=== PATIENT | female | born 1955 | race Caucasian/White ===

== ENCOUNTER 2018-04-22 16:23 | Emergency (ER) | payer BC, OTHER ==
--- OUTSIDE RECORDS SUMMARY | 2018-04-22 16:35 | XMS REPORT | Continuity of Care Document ---
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 Kita Kinght PayID: [id number] [address] [place] [address] Advance Directives Description No Information Available Problems Date Description Provider Status Onset: 10/20/2012 Genital herpes simplex Abigail Iniguez MD Active Onset: 05/02/2011 Vitamin D deficiency Abigail Iniguez MD Active Onset: 04/30/2010 Family history of osteoporosis Abigail Iniguez MD Active Onset: 03/27/2009 Solitary sacroiliitis Abigail Iniguez MD Active Onset: 03/27/2009 Menopausal and postmenopausal Abigail Iniguez MD Active disorders Onset: 04/11/2008 Allergic rhinitis due to pollen Abigail Iniguez MD Active Onset: 02/01/2007 Intramural leiomyoma of uterus Abigail Iniguez MD Active Onset: 02/01/2007 Migraine variants, not intractable Abigail Iniguez MD Active Onset: 12/31/2005 Migraine with typical aura Abigail Iniguez MD Active Onset: 08/10/2013 Abnormal cervical Papanicolaou smear Abigail Iniguez MD Resolved with positive human papillomavirus deoxyribonucleic acid test Resolved: 03/19/2018 Onset: 12/31/2005 Mixed hyperlipidemia Abigail Iniguez MD Resolved Resolved: 07/20/2014 Family History Date Family Member(s) Problem(s) Comments Father Hypercholesterolemia Father Hypertension Father CAD Father Osteoarthritis Father Osteoporosis Father Glaucoma Mother Hypertension Mother Gout First Daughter No Current Problems First Brother due to Leukemia () - (age 5 Years) Second Brother Gout Second Brother Possible Asbergers Syndrome Social History Type Date Description Comments Sex Unknown Marital Status 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, [employer]; 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[employer], [employer] for [employer] 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 ETOH Use Occasionally consumes alcohol Tobacco Use Start: Unknown Patient has never smoked Exercise Exercises sporadically Type/Frequency Currently Active Patient is currently sexually active Allergies, Adverse Reactions, Alerts Description No Known Drug Allergies Medications Medication Date Status Form Strength Qnty SIG Indications Ordering Provider Phentermine 01/11/ Active Tablets 1/2 po E66.3 Scinta, HCL 2018 daily in MD Janeen morning Fluticasone 11/16/ Active Suspension 50mcg/Act 47.400 1 spr J30.89 Iniguez Propionate 2018 ml each , MD Abigail nostril 1-2 times daily as needed during allergy season J30.1 Premarin 01/30/2016 Active Cream 0.625mg/GM 30gm apply N95.2 Iniguez , 1/2 gm MD Abigail to vagina 2 of 7 days, 3 weeks on 1 weeks off Vitamin D3 02/19/2010 Active Tablets 1000Unit 180tab 2 by E55.9 Iglesia, s mouth MD Abigail daily with dinner with meat fat oil Sumatriptan 07/29/2006 Active Tablets 25mg 10tabs 1 by G43.D0 Iglesia Succinate mouth MD Abigail with moreira onset, repeat every 2 hours, max dose 200mg/d G43.809 Lomaira Active Tablets 8mg 1 po E66.3 Leeanna Grier, daily at DC noon Naproxen 07/31/2017 - Hx Tablets 500mg 60 1 by M25.551 Abigail Iniguez , 03/24/2018 ta mouth bs twice a day with food as needed Flonase 02/15/2015 - Hx Suspension 50mcg/ 47 1 spr J30.89 Abigail Iniguez, Allergy 11/16/2017 Act .4 each MD Relief 00 nostril ml 1-2 times daily as needed during allergy season J30.1 Premarin 07/03/2014 - Hx Cream 0.625mg/GM 1Units 0.5gm to N95.2 [place], 01/30/2016 vagina MD Abigail 2of 7 days for 3 weeks, then 1 week off Flonase 04/26/2014 - Hx Suspension 50mcg/Act 1units 1 spr 477.8 [place], 02/15/2015 each MD Abigail nostril twice a day Ventolin HFA 08/23/2013 - Hx Aerosol 108mcg/Act 1units 2 puffs [place], 09/22/2013 every 4 MD Abigail hours as needed for wheeze and cough Meloxicam 08/19/2012 - Hx Tablets 15mg 90tabs take 1 [place], 11/19/2013 tablet by MD Abigail mouth every day with food. watch for upset stomach. Flonase 08/26/2011 - Hx Suspension 50mcg/Act 1units 1-2 [place], 04/26/2014 sprays to MD Abigail each nostril daily Astelin 08/26/2011 - Hx Solution 137mcg/[place] 1units 1-2 [place], 07/03/2014 sprays MD Abigail twice daily each nostril Immunizations CPT Code Status Date Vaccine Reaction Lot # [id number] Given 02/17/2018 Flu Vaccine NOS 00673 Given 12/16/2017 Shingrix (Shingles) Zoster Vaccine HZV, Recombinant, Subunit, Adj 52201 Given 09/06/2017 Shingrix (Shingles) Zoster Vaccine HZV, Recombinant, Subunit, Adj 80237 Given 07/31/2017 Tdap (Adacel) Ages 7 And Above Only [id number] Q2039 Given 12/31/2016 Flu Vaccine NOS 03300 Given 05/26/2016 Influenza Virus Vaccine,Quadrivalent,Split,Preserv Free 3 Yrs+ [id number] Given 02/16/2015 Fluvirin Immunization [facility] 29105 Given 01/26/2014 Influenza Virus Vaccine,Quadrivalent,Split,Preserv Free 3 Yrs+ 61646 Given 05/07/2013 Afluria Or Fluvirin Flu Vac Intramuscular 25228 Given 09/03/2011 Zoster (Zostavax) RA/222 [facility] 58354 Given 02/14/2010 Afluria Or Fluvirin Flu Vac Intramuscular 88649 Given 03/27/2009 Afluria Or Fluvirin Flu Vac Intramuscular 49036 Given 03/27/2009 Administration Swine Flu Vaccine H1N1 67185 Given 04/11/2008 Tdap (Adacel) Ages 7 And Above Only 02648 Given 02/01/2007 Afluria Or Fluvirin Flu Vac Intramuscular 57906 Given 01/11/1999 Tetanus And Diptheria Toxoids For Adult Use-preservative free Vital Signs Date Vital Result Comment 03/25/2018 11:02am Weight 170.00 lb Heart Rate 76 /min BP Systolic 116 mmHg BP Diastolic 82 mmHg Respiratory Rate 14 /min Height 65.6 inches 5'5.60" BMI (Body Mass Index) 27.8 kg/m2 03/19/2018 3:42pm Weight 171.00 lb Heart Rate 84 /min BP Systolic 130 mmHg BP Diastolic 72 mmHg Respiratory Rate 18 /min Height 65.6 inches 5'5.60" O2 % BldC Oximetry 97 % ra BMI (Body Mass Index) 27.9 kg/m2 07/31/2017 2:07pm Weight 184.00 lb Heart Rate 66 /min BP Systolic 120 mmHg BP Diastolic 76 mmHg Respiratory Rate 18 /min Height 65.6 inches 5'5.60" BMI (Body Mass Index) 30.1 kg/m2 01/30/2017 8:41am Weight 186.00 lb Heart Rate 76 /min BP Systolic 114 mmHg BP Diastolic 80 mmHg Respiratory Rate 18 /min Height 66 inches 5'6" BMI (Body Mass Index) 30.0 kg/m2 07/30/2016 11:34am Weight 180.00 lb Heart Rate 68 /min BP Systolic 118 mmHg BP Diastolic 70 mmHg Respiratory Rate 18 /min Height 66 inches 5'6" BMI (Body Mass Index) 29.0 kg/m2 01/30/2016 9:15am Weight 177.31 lb Heart Rate 76 /min BP Systolic 128 mmHg BP Diastolic 74 mmHg Respiratory Rate 12 /min Height 66.75 inches 5'6.75" BMI (Body Mass Index) 28.0 kg/m2 09/06/2015 8:57am Weight 178.00 lb Heart Rate 80 /min BP Systolic 118 mmHg LEFT Reg BP Diastolic 62 mmHg LEFT Reg Respiratory Rate 18 /min Height 66.75 inches 5'6.75" BMI (Body Mass Index) 28.1 kg/m2 07/31/2015 9:31am Weight 180.00 lb Heart Rate 70 /min BP Systolic 124 mmHg LEFT Reg BP Diastolic 82 mmHg LEFT Reg Respiratory Rate 18 /min Height 66.75 inches 5'6.75" BMI (Body Mass Index) 28.4 kg/m2 04/02/2015 2:57pm Weight 183.00 lb Heart Rate 68 /min BP Systolic 112 mmHg BP Diastolic 70 mmHg Respiratory Rate 18 /min Height 66.75 inches 5'6.75" BMI (Body Mass Index) 28.9 kg/m2 12/29/2014 1:22pm Weight 178.00 lb Heart Rate 72 /min BP Systolic 118 mmHg BP Diastolic 78 mmHg Height 66.75 inches 5'6.75" BMI (Body Mass Index) 28.1 kg/m2 10/03/2014 8:36am Weight 177.00 lb Heart Rate 70 /min BP Systolic 120 mmHg BP Diastolic 80 mmHg Respiratory Rate 18 /min Height 66.75 inches 5'6.75" BMI (Body Mass Index) 27.9 kg/m2 08/07/2014 11:09am Weight 184.00 lb Heart Rate 66 /min BP Systolic 120 mmHg BP Diastolic 80 mmHg Respiratory Rate 18 /min Height 66.75 inches 5'6.75" BMI (Body Mass Index) 29.0 kg/m2 07/20/2014 8:31am Weight 182.00 lb Up 1# Heart Rate 68 /min BP Systolic 112 mmHg L/Reg BP Diastolic 78 mmHg L/Reg Respiratory Rate 17 /min Height 66.75 inches BMI (Body Mass Index) 28.7 kg/m2 07/03/2014 10:27am Weight 181.00 lb Heart Rate 72 /min BP Systolic 120 mmHg BP Diastolic 78 mmHg Respiratory Rate 18 /min Height 67 inches 5'7" BMI (Body Mass Index) 28.3 kg/m2 12/30/2013 9:27am Weight 179.00 lb Heart Rate 74 /min BP Systolic 122 mmHg BP Diastolic 80 mmHg Respiratory Rate 18 /min Height 67 inches 5'7" 08/23/2013 10:05am Body Temperature 97.8 F Weight 178.00 lb Heart Rate 72 /min BP Systolic 120 mmHg BP Diastolic 80 mmHg Respiratory Rate 18 /min Height 67 inches 5'7" O2 % BldC Oximetry 97 % Ra 08/18/2013 9:56am Weight 178.00 lb Heart Rate 76 /min BP Systolic 122 mmHg BP Diastolic 78 mmHg Respiratory Rate 18 /min Height 67 inches 5'7" 08/10/2013 4:27pm Weight 177.00 lb Heart Rate 72 /min BP Systolic 122 mmHg BP Diastolic 80 mmHg Respiratory Rate 18 /min Height 67 inches 5'7" 07/19/2013 10:53am Weight 178.00 lb Heart Rate 76 /min BP Systolic 118 mmHg BP Diastolic 80 mmHg Respiratory Rate 18 /min Height 67 inches 5'7" 02/23/2013 9:13am Weight 180.00 lb Heart Rate 76 /min BP Systolic 122 mmHg BP Diastolic 82 mmHg Respiratory Rate 18 /min 02/22/2013 9:54am Body Temperature 98.9 F Weight 180.00 lb Heart Rate 78 /min BP Systolic 126 mmHg BP Diastolic 78 mmHg Respiratory Rate 18 /min O2 % BldC Oximetry 98 % 01/05/2013 1:41pm Body Temperature 97.6 F Weight 180.00 lb Heart Rate 78 /min BP Systolic 120 mmHg BP Diastolic 80 mmHg Respiratory Rate 18 /min 10/20/2012 1:02pm Weight 178.00 lb Heart Rate 76 /min BP Systolic 118 mmHg BP Diastolic 78 mmHg Respiratory Rate 18 /min 10/13/2012 3:06pm Weight 176.00 lb Heart Rate 76 /min BP Systolic 106 mmHg BP Diastolic 68 mmHg Respiratory Rate 18 /min 08/19/2012 10:37am Weight 174.00 lb Heart Rate 76 /min BP Systolic 110 mmHg BP Diastolic 80 mmHg Respiratory Rate 18 /min 05/03/2012 11:23am Weight 180.00 lb Heart Rate 80 /min BP Systolic 110 mmHg BP Diastolic 90 mmHg Respiratory Rate 18 /min Height 67 inches 5'7" 08/26/11 01/09/2012 9:50am Body Temperature 97.9 F Weight 174.19 lb Heart Rate 76 /min BP Systolic 118 mmHg BP Diastolic 74 mmHg Height 67 inches 5'7" 08/26/11 12/29/2011 4:33pm Body Temperature 98.2 F Weight 173.00 lb Heart Rate 70 /min BP Systolic 116 mmHg BP Diastolic 68 mmHg Respiratory Rate 18 /min Height 67 inches 5'7" 08/26/11 O2 % BldC Oximetry 97 % 08/26/2011 1:25pm Body Temperature 98.2 F Weight 175.00 lb Heart Rate 74 /min BP Systolic 112 mmHg BP Diastolic 70 mmHg Respiratory Rate 17 /min Height 67 inches 5'7" 08/26/11 06/27/2011 10:38am Body Temperature 98.1 F Weight 173.00 lb Heart Rate 78 /min BP Systolic 110 mmHg BP Diastolic 74 mmHg Respiratory Rate 17 /min 06/17/2011 9:57am Body Temperature 98.4 F Weight 174.00 lb Heart Rate 82 /min BP Systolic 100 mmHg BP Diastolic 68 mmHg Respiratory Rate 17 /min Height 67.25 inches 5'7.25" 05/02/11 05/02/2011 2:16pm Weight 176.00 lb Heart Rate 70 /min BP Systolic 112 mmHg BP Diastolic 72 mmHg Respiratory Rate 17 /min Height 67.25 inches 5'7.25" 04/08/2011 4:33pm Body Temperature 98.4 F Weight 177.00 lb Heart Rate 76 /min BP Systolic 114 mmHg BP Diastolic 72 mmHg Respiratory Rate 19 /min Height 67.25 inches 5'7.25" 04/30/2010 8:46am Weight 170.00 lb Heart Rate 78 /min BP Systolic 110 mmHg BP Diastolic 66 mmHg Respiratory Rate 18 /min Height 67.25 inches 5'7.25" 04/19/2010 2:48pm Body Temperature 99.1 F Weight 171.00 lb Heart Rate 72 /min BP Systolic 116 mmHg LEFT BP Diastolic 70 mmHg LEFT Respiratory Rate 16 /min 03/25/2010 2:44pm Weight 170.00 lb Heart Rate 68 /min BP Systolic 132 mmHg l arm BP Diastolic 82 mmHg l arm Respiratory Rate 18 /min 02/15/2010 4:20pm Weight 168.00 lb Heart Rate 72 /min BP Systolic 116 mmHg LEFT BP Diastolic 70 mmHg LEFT Respiratory Rate 16 /min 05/29/2009 10:00am Body Temperature 97.5 F Weight 174.00 lb Heart Rate 78 /min BP Systolic 110 mmHg BP Diastolic 70 mmHg Respiratory Rate 17 /min O2 % BldC Oximetry 94 % Ra 05/26/2009 9:37am Body Temperature 96.8 F Weight 173.00 lb Heart Rate 65 /min BP Systolic 112 mmHg BP Diastolic 68 mmHg Respiratory Rate 15 /min O2 % BldC Oximetry 98 % 04/19/2009 9:06am Weight 175.00 lb Heart Rate 78 /min BP Systolic 126 mmHg BP Diastolic 72 mmHg Respiratory Rate 16 /min 03/27/2009 2:03pm Weight 175.00 lb Heart Rate 67 /min BP Systolic 124 mmHg BP Diastolic 78 mmHg Respiratory Rate 16 /min 02/14/2009 10:07am Body Temperature 98.0 F Weight 172.00 lb Heart Rate 68 /min BP Systolic 122 mmHg BP Diastolic 70 mmHg Respiratory Rate 16 /min O2 % BldC Oximetry 95 % ra 09/19/2008 4:20pm Weight 182.00 lb Heart Rate 72 /min BP Systolic 114 mmHg BP Diastolic 78 mmHg Respiratory Rate 14 /min 04/11/2008 11:03am Weight 181.00 lb Heart Rate 70 /min BP Systolic 122 mmHg BP Diastolic 70 mmHg Respiratory Rate 14 /min Height 67.25 inches 5'7.25" 09/16/2007 10:59am Weight 178.00 lb Heart Rate 62 /min BP Systolic 104 mmHg BP Diastolic 66 mmHg Respiratory Rate 17 /min Height 67.25 inches 5'7.25" 09/10/2007 11:34am Body Temperature 98.8 F Weight 176.00 lb Heart Rate 68 /min BP Systolic 110 mmHg BP Diastolic 66 mmHg Respiratory Rate 16 /min Height 67.25 inches 5'7.25" 07/15/2007 1:47pm Body Temperature 98.1 F Weight 182.00 lb Heart Rate 74 /min BP Systolic 122 mmHg BP Diastolic 60 mmHg Respiratory Rate 19 /min Height 67.25 inches 5'7.25" 04/23/2007 3:31pm Body Temperature 98.1 F Weight 176.00 lb Heart Rate 64 /min BP Systolic 118 mmHg BP Diastolic 70 mmHg Respiratory Rate 18 /min Height 67.25 inches 5'7.25" 02/01/2007 8:14am Weight 178.00 lb BP Systolic 120 mmHg BP Diastolic 70 mmHg Height 67.25 inches 5'7.25" 07/29/2006 2:48pm Weight 178.25 lb Heart Rate 80 /min BP Systolic 124 mmHg BP Diastolic 78 mmHg Respiratory Rate 20 /min Height 67.25 inches 5'7.25" 02/20/2006 1:16pm Weight 175.25 lb Heart Rate 68 /min BP Systolic 132 mmHg BP Diastolic 70 mmHg Respiratory Rate 16 /min Height 67.25 inches 5'7.25" 01/30/2006 11:27am Body Temperature 98.3 F Weight 174.06 lb Heart Rate 68 /min BP Systolic 112 mmHg BP Diastolic 70 mmHg Respiratory Rate 16 /min Height 67.25 inches 5'7.25" 12/31/2005 2:10pm Weight 175.00 lb Heart Rate 68 /min BP Systolic 100 mmHg BP Diastolic 60 mmHg Respiratory Rate 16 /min 12/19/2005 2:39pm Weight 174.00 lb Heart Rate 68 /min BP Systolic 112 mmHg BP Diastolic 70 mmHg Respiratory Rate 16 /min Results Test Date Facility Test Result H/L Range Note Laboratory test 03/19/2018 [facility], inflamed 1 finding [facility] Lipid 07/29/2017 [facility] Cholesterol 260 mg/dL High 50-199 Triglycerides 77 mg/dL 30-200 HDL 66 mg/dL 35-85 2 Chol/ HDL Ratio 3.9 ratio 3.7-5.6 VLDL 15 mg/dL 2-29 LDL (Calc) 179 mg/dL High 20-99 3 Comprehensive Met Panel-[facility] 07/29/2017 [facility] Sodium 139 mmol/L 135- 146 4 Potassium 4.0 mmol/L 3.5-5.2 Chloride# 101 mmol/L 97-110 5 Carbon Dioxide 31 mmol/L 24-34 Glucose 93 mg/dL 70-105 BUN 20 mg/dL 6-26 Creatinine 0.9 mg/dL 0.5-1.4 Calcium 9.8 mg/dL 8.5-10.2 Total Protein 7.4 g/dL 6.0-8.0 Albumin 4.7 g/dL 3.6-4.9 Globulin 2.7 g/dL 2.0-3.5 A/G Ratio 1.7 Ratio 1.0-2.2 Total Bilirubin 0.6 mg/dL 0.1-1.3 Alkaline Phosphatase 64 U/L 24-140 Alt 48 U/L High 3-42 Ast 29 U/L 8-42 Lori Egfr >60 >60 6 Non Lori Egfr >60 >60 7 Anion Gap 7 mmol/L 5-15 8 Laboratory test 07/29/2017 [facility] Vitamin D 25 Hydroxy 42 ng/mL 30-100 9 finding Lipid 01/30/2017 [facility] Cholesterol 233 mg/dL High 50-199 10 Triglycerides 89 mg/dL 30-200 HDL 62 mg/dL 35-85 11 Chol/ HDL Ratio 3.8 ratio 3.7-5.6 VLDL 18 mg/dL 2-29 LDL (Calc) 154 mg/dL High 20-99 12 Comprehensive Met Panel-[facility] 01/30/2017 [facility] Sodium 143 mmol/L 135- 146 13 Potassium 5.6 mmol/L High 3.5-5.2 Chloride# 106 mmol/L 97-110 14 Carbon Dioxide 31 mmol/L 24-34 Glucose 93 mg/dL 70-105 Creatinine 1.0 mg/dL 0.5-1.4 Calcium 9.7 mg/dL 8.5-10.2 Total Protein 7.2 g/dL 6.0-8.0 Albumin 4.4 g/dL 3.6-4.9 Globulin 2.8 g/dL 2.0-3.5 A/G Ratio 1.6 Ratio 1.0-2.2 Total Bilirubin 0.5 mg/dL 0.1-1.3 Alkaline Phosphatase 61 U/L 24-140 Alt 34 U/L 3-42 Ast 27 U/L 8-42 Lori Egfr >60 >60 15 Non Lori Egfr 58 Low >60 16 Anion Gap 6 mmol/L Low 7-16 17 BUN 22 mg/dL 6-26 Laboratory test 07/30/2016 [facility] Pap Smear Thin ok 18 finding Prep Laboratory test 07/30/2016 [facility] HPV Laboratory neg 19 finding [phone] Allia <SEE NOTE> Lipid 07/23/2016 [facility] Cholesterol 243 mg/dL High 50-19 20 9 Triglycerides 95 mg/dL 30-200 HDL 58 mg/dL 35-85 21 Chol/ HDL Ratio 4.2 ratio 3.7-5.6 VLDL 19 mg/dL 2-29 LDL (Calc) 166 mg/dL High 20-99 22 Comprehensive Metabolic (CMP) 07/23/2016 [facility] Sodium 141 mmol/L 135- 146 23 Potassium 4.5 mmol/L 3.5-5.2 Chloride# 104 mmol/L 97-110 24 Carbon Dioxide 30 mmol/L 24-34 Glucose 87 mg/dL 70-105 BUN 21 mg/dL 6-26 Creatinine 0.9 mg/dL 0.5-1.4 Calcium 9.4 mg/dL 8.5-10.2 Total Protein 7.0 g/dL 6.0-8.0 Albumin 4.4 g/dL 3.6-4.9 Globulin 2.6 g/dL 2.0-3.5 A/G Ratio 1.7 Ratio 1.0-2.2 Total Bilirubin 0.6 mg/dL 0.1-1.3 Alkaline Phosphatase 56 U/L 24-140 Alt 27 U/L 3-42 Ast 22 U/L 8-42 Lori Egfr >60 >60 25 Non Lori Egfr >60 >60 26 Anion Gap 12 mmol/L 7-16 27 Laboratory test finding 07/23/2016 [facility] Vit D,25 Hydroxy 40 ng/mL 31- 100 Lipid 01/24/2016 [facility] Cholesterol 206 mg/dL High 50-199 28 Triglycerides 69 mg/dL 30-200 HDL 57 mg/dL 35-85 29 Chol/ HDL Ratio 3.6 ratio Low 3.7-5.6 VLDL 14 mg/dL 2-29 LDL (Calc) 135 mg/dL High 20-99 30 Comprehensive Metabolic (CMP) 01/24/2016 [facility] Sodium 140 mmol/L 134- 142 Potassium 4.1 mmol/L 3.5-5.2 Chloride 104 mmol/L 97-109 Carbon Dioxide 31 mmol/L 24-34 Glucose 90 mg/dL 70-105 BUN 20 mg/dL 6-26 Creatinine 0.9 mg/dL 0.5-1.4 Calcium 9.5 mg/dL 8.5-10.2 Total Protein 7.0 g/dL 6.0-8.0 Albumin 4.2 g/dL 3.6-4.9 Globulin 2.8 g/dL 2.0-3.5 A/G Ratio 1.5 Ratio 1.0-2.2 Total Bilirubin 0.6 mg/dL 0.1-1.3 Alkaline Phosphatase 46 U/L 24-140 Alt 29 U/L 3-42 Ast 21 U/L 8-42 Anion Gap 9 mmol/L 6-14 Lori Egfr >60 >60 31 Non Lori Egfr >60 >60 32 Laboratory test 09/06/2015 [facility] no ha 33 finding [facility] Laboratory test 07/31/2015 [facility] HPV Laboratory neg 34 finding [phone] Allia <SEE NOTE> Laboratory test 07/31/2015 [facility] Pap Smear Thin ascus 35 finding Prep Lipid 07/16/2015 [facility] Cholesterol 240 mg/dL High 50-19 36 9 Triglycerides 87 mg/dL 30-200 HDL 63 mg/dL 35-85 37 Chol/ HDL Ratio 3.8 ratio 3.7-5.6 VLDL 17 mg/dL 2-29 LDL (Calc) 160 mg/dL High 20-99 38 Comprehensive Metabolic (CMP) 07/16/2015 [facility] Sodium 138 mmol/L 134- 142 Potassium 4.6 mmol/L 3.5-5.2 Chloride 103 mmol/L 97-109 Carbon Dioxide 28 mmol/L 24-34 Glucose 82 mg/dL 70-105 BUN 23 mg/dL 6-26 Creatinine 0.9 mg/dL 0.5-1.4 Calcium 9.5 mg/dL 8.5-10.2 Total Protein 7.1 g/dL 6.0-8.0 Albumin 4.2 g/dL 3.6-4.9 Globulin 2.9 g/dL 2.0-3.5 A/G Ratio 1.4 Ratio 1.0-2.2 Total Bilirubin 0.5 mg/dL 0.1-1.3 Alkaline Phosphatase 57 U/L 24-140 Alt 55 U/L High 3-42 Ast 35 U/L 8-42 Anion Gap 12 mmol/L 6-14 Lori Egfr >60 >60 39 Non Lori Egfr >60 >60 40 Laboratory test 07/16/2015 [facility] Vit D,25 41 ng/mL 31-100 finding Hydroxy Laboratory test 10/03/2014 [facility] Estradiol 24 pg/mL 41, 42 finding Laboratory test 08/07/2014 [facility] 12, 6, ecc all 43 finding [facility] Laboratory test 07/20/2014 [facility] HPV Laboratory pos, need 44 finding [phone] Allia <SEE type NOTE> Laboratory test 07/20/2014 [facility] Pap Smear Thin ok 45 finding Prep Misc 07/20/2014 [facility] Test Name [id number] HPV 46 [phone] Mayda <SEE NOTE> Result: SEE NOTE: Low 16,18 neg 47 Performing Lab: [facility] <SEE NOTE> 48 Lipid 07/13/2014 [facility] Cholesterol 220 mg/dL High 50-199 49 Triglycerides 72 mg/dL 30-200 HDL 60 mg/dL 35-85 50 Chol/ HDL Ratio 3.7 ratio 3.7-5.6 VLDL 14 mg/dL 2-29 LDL (Calc) 146 mg/dL High 20-99 51 Laboratory test finding 07/13/2014 [facility] Vit D,25 Hydroxy 54 ng/mL 31- 100 Comprehensive Metabolic 07/13/2014 [facility] Sodium 138 mmol/L 134-142 (CMP) Potassium 4.6 mmol/L 3.5-5.2 Chloride 103 mmol/L 97-109 Carbon Dioxide 29 mmol/L 24-34 Glucose 84 mg/dL 70-105 BUN 18 mg/dL 6-26 Creatinine 0.8 mg/dL 0.5-1.4 Calcium 9.4 mg/dL 8.5-10.2 Total Protein 7.2 g/dL 6.0-8.0 Albumin 4.4 g/dL 3.6-4.9 Globulin 2.8 g/dL 2.0-3.5 A/G Ratio 1.6 Ratio 1.0-2.2 Total Bilirubin 0.4 mg/dL 0.1-1.3 Alkaline Phosphatase 56 U/L 24-140 Alt 40 U/L 3-42 Ast 33 U/L 8-42 Anion Gap 11 mmol/L 6-14 Lori Egfr >60 >60 52 Non Lori Egfr >60 >60 53 Laboratory test 08/18/2013 [facility] mucus only 54 finding Laboratory test 07/19/2013 N2N/CCD Import [id number] ok/hpv+,[id number] 55 finding 8 GC / Chlamydia neg neg 56 HPV Genotyping neg neg 57 Laboratory test finding 10/13/2012 N2N/CCD Import Dasha species See Note 58 Gardnerella vaginalis See Note 59 Genital Culture gbs 60 Gram Stain See Note 61 Trichomonas vaginalis See Note 62 Antibody Detection See Note 63 HBSAb Interpretation Nonreactive Nonreactive Hepatitis B Surface Antibody < 2.5 mIU/mL <1.0 64 Hepatitis B Surface Antigen Nonreactive Nonreactive 65 Hepatitis C Antibody Nonreactive Nonreactive Rapid Plasma Reagin Nonreactive Nonreactive 66 Signal/Cutoff ratio < 0.02 <0.80 67 Laboratory test finding 10/12/2012 N2N/CCD Import Herpes Culture hsv 1 68 Trichomonas Direct Exam no 69 Dna Probe N. Gono + C. 10/12/2012 N2N/CCD Import Dna Probe For Chlamydia neg 70 Trach. Trac. Dna Probe For N. Gonorrhoeae neg 71 Laboratory test 10/12/2012 N2N/CCD Import Urine Bacteria Very Few None finding Seen Urine Bilirubin - Dipstick Negative Negative Urine Blood Trace Negative Urine Clarity Clear Clear Urine Color Yellow Yellow Urine Epithelial Cells Very Few None Seen /lpf Urine Glucose - Dipstick Negative mg/dL Negative Urine HCG (Qualitative) Negative Negative 72 Urine Ketone Negative mg/dL Negative Urine Leuk Esterase Small High Negative Urine Nitrite - Dipstick Negative Negative Urine PH 6.0 Low 6.5-7.5 Urine Protein - Dipstick Trace mg/dL Negative Urine RBC 2-5 rbc/hpf 0-7 Urine Screen See Note 73 Urine Specific [place] >=1.030 1.010-1.030 Urine Urobilinogen - Dipstick 0.2 E.U./dL 0.2-1.0 Urine WBC 5-10 wbc/hpf 0-7 Laboratory test finding 05/13/2012 N2N/CCD Import Alb/Glob 1.0 ratio Albumin 3.9 g/dL 3.5-5.0 Alkaline Phosphatase 80 U/L 50-136 Anion Gap 11 mEq/L 8-16 BUN 21 mg/dL 5-23 BUN/Creat 21.0 ratio Band% 2 % 0-8 Basophil% 1 % 0-2 Bilirubin,Total 0.5 mg/dL 0.2-1.2 Calcium 9.3 mg/dL 8.5-10.1 Carbon Dioxide 31 mEq/L High 18-29 Chloride 104 mmol/L 98-107 Creatinine 1.0 mg/dL 0.5-1.4 Eosinophil% 17 % High 0-5 Globulin 3.9 g/dL 1.9-4.3 Glom Filtration Rate, Estimate >60 mL/min >60 Glucose 93 mg/dL 76-115 Hematocrit 40.2 % 36.0-46.1 Hemoglobin 13.5 gm/dL 11.6-15.8 If >60 mL/min >60 74 Lymph% 21 % 17-56 Mean Cell Volume 86.6 fl 80.9-99.0 Mean Corpuscular HGB 29.1 pg 25.9-32.7 Mean Corpuscular HGB Conc 33.6 g/dL 30.8-34.3 Mean Platelet Volume 11.2 fL 8.9-12.4 Monocyte% 6 % 0-10 Neutrophils% 53 % 33-73 Platelet Count 339 K/uL 155-360 Platelet Estimate Normal Potassium 4.6 mmol/L 3.5-5.1 RBC Morphology Normal Red Blood Count 4.64 M/uL 3.90-5.40 Red Cell Distri Width %CV 12.8 % 11.7-14.4 Red Cell Distri Width SD 39.6 fl 3-47 SGPT/Alt 48 U/L 30-65 Sgot/Ast 23 U/L 16-40 Sodium 141 mmol/L 136-145 Thyroid Stim Hormone 1.01 uIU/mL 0.49-4.67 75 Total Cells Counted 100 #CELLS Total Protein 7.8 g/dL 6.3-8.0 Vitamin D,25-Hydroxy 32.7 ng/mL 30.0-100.0 76 White Blood Count 4.9 K/uL 3.1-10.7 LDL Cholesterol 05/13/2012 N2N/[facility] Import Cholesterol 216 mg/dL High 120- 200 Profile HDL Cholesterol 55 mg/dL 29-83 LDL-Cholesterol 139 mg/dL 62-185 Triglycerides 108 mg/dL 16-231 Laboratory test 05/03/2012 N2N/CCD Import [id number] 77 finding GC / Chlamydia neg neg 78 Laboratory test 05/14/2011 N2N/CCD Import Vitamin 45.9 ng/mL 30.0-100.0 79 finding D,25-Hydroxy LDL Cholesterol 05/14/2011 N2N/CCD Import Cholesterol 223 mg/dL High 120- 200 Profile HDL Cholesterol 65 mg/dL 29-83 LDL-Cholesterol 139 mg/dL 62-185 Triglycerides 97 mg/dL 16-231 Laboratory test 04/09/2011 N2N/CCD Import Culture Throat See Note ok 80 finding Laboratory test 05/01/2010 N2N/CCD Import Vitamin 30.2 ng/mL Low 32.0- 100 81 finding D,25-Hydroxy .0 LDL Cholesterol 05/01/2010 N2N/CCD Import Cholesterol 223 mg/dL High 120- 200 Profile HDL Cholesterol 70 mg/dL 32-96 LDL-Cholesterol 139 mg/dL 62-185 Triglycerides 68 mg/dL 0-210 Laboratory test finding 04/30/2010 N2N/CCD Import Cytology Pap See Note ok 82 Laboratory test finding 02/18/2010 N2N/CCD Import Alb/Glob 1.0 Albumin 4.3 g/dL 3.5-5.0 Alkaline Phosphatase 71 U/L 50-136 Anion Gap 14 mEq/L 8-16 BUN 17 mg/dL 5-23 BUN/Creat 18.8 Bas% 1.2 % High 0.0-1.1 Baso # 0.1 K/uL 0.0-0.1 Bilirubin,Total 0.6 mg/dL 0.2-1.2 Calcium 9.0 mg/dL 8.5-10.1 Carbon Dioxide 29 mEq/L 21-32 Chloride 102 mEq/L 98-107 Creatinine 0.9 mg/dL 0.5-1.4 Eo% 4.1 % 0.0-6.6 Eos # 0.2 K/uL 0.0-0.5 Globulin 4.2 gm/dL 1.9-4.3 Glom Filtration Rate, Estimate >60 mL/min >60 Glucose 95 mg/dL 76-115 Hematocrit 41.7 % 36.0-46.1 Hemoglobin 13.8 gm/dL 11.6-15.8 If >60 mL/min >60 83 Lymph # 1.1 K/uL 0.8-3.4 Lymph % 22.0 % 17.0-46.1 Mean Cell Volume 88.5 fl 80.9-99.0 Mean Corpuscular HGB 29.3 pg 25.9-32.7 Mean Corpuscular HGB Conc 33.1 g/dL 30.8-34.3 Mean Platelet Volume 11.8 fL 8.9-12.4 [place] # 0.4 K/uL 0.3-0.9 [place] % 8.3 % 4.3-13.2 Neut# 3.1 K/uL 1.0-7.0 Neut% 64.4 % 40.4-72.8 Platelet Count 339 K/uL 155-360 Potassium 4.1 mEq/L 3.5-5.1 Red Blood Count 4.71 M/uL 3.90-5.40 Red Cell Distri Width %CV 12.6 % 11.7-14.4 Red Cell Distri Width SD 39.8 fl 3-47 SGPT/Alt 32 U/L 30-65 Sgot/Ast 16 U/L 16-40 Sodium 141 mEq/L 136-145 Thyroid Stim Hormone 1.50 uIU/mL 0.49-4.67 84 Total Protein 8.5 g/dL High 6.3-8.0 Vitamin D,25-Hydroxy 24.2 ng/mL Low 32.0-100.0 85 White Blood Count 4.8 K/uL 3.1-10.7 Vitamin B12 And 02/18/2010 N2N/CCD Import Folic Acid 15.5 ng/mL High 6.0- 15.4 Folate Vitamin B12 888 pg/mL 208-964 Laboratory test 05/28/2009 N2N/CCD Import Culture Throat See Note 86 finding Laboratory test 04/19/2009 N2N/CCD Import Surgical Pathology yuli ker 87 finding Laboratory test 03/28/2009 N2N/CCD Import Cytology Pap ok 88 finding Laboratory test 05/16/2008 N2N/CCD Import Atypical Lymph% 1 % 0-7 89 finding Band% 1 % 0-8 Basophil% 2 % 0-2 Eosinophil% 5 % 0-5 Hematocrit 39.3 % 36.0-46.1 Hemoglobin 12.8 gm/dL 11.6-15.8 Lymph% 23 % 17-56 Mean Cell Volume 86.6 fl 80.9-99.0 Mean Corpuscular HGB 28.2 pg 25.9-32.7 Mean Corpuscular HGB Conc 32.6 g/dL 30.8-34.3 Mean Platelet Volume 11.0 fL 8.9-12.4 Monocyte% 4 % 0-10 Neutrophils% 64 % 33-73 Platelet Count 324 K/uL 155-360 Platelet Estimate Normal RBC Morphology Normal Red Blood Count 4.54 M/uL 3.90-5.40 Red Cell Distri Width %CV 12.7 % 11.7-14.4 Total Cells Counted 100 #CELLS White Blood Count 4.1 K/uL 3.1-10.7 Protein Electro.,S 05/16/2008 N2N/CCD Import A/G Ratio 1.2 0.7-2.0 Albumin 4.1 g/dL 3.2-5.6 Cnzwf-5-Allqcwgo 0.2 g/dL 0.1-0.4 Makum-4-Dykroydd 0.6 g/dL 0.4-1.2 Beta Globulin 1.1 g/dL 0.6-1.3 Gamma Globulin 1.4 g/dL 0.5-1.6 Globulin, Total 3.4 g/dL 2.0-4.5 M-Jeremiah Not Observed Not Observed g Note: (See Note) 90 Protein,Total,Serum 7.5 g/dL 6.0-8.5 Laboratory test finding 05/15/2008 N2N/CCD Import Alb/Glob 1.1 91 Albumin 4.2 g/dL 3.5-5.0 Alkaline Phosphatase 72 U/L 50-136 Anion Gap 8 mEq/L 8-16 BUN 22 mg/dL 5-23 BUN/Creat 24.4 Bilirubin,Total 0.4 mg/dL 0.2-1.2 Calcium 9.4 mg/dL 8.5-10.1 Carbon Dioxide 33 mEq/L High 21-32 Chloride 103 mEq/L 98-107 Creatinine 0.9 mg/dL 0.5-1.4 Globulin 4.0 gm/dL 1.9-4.3 Glom Filtration Rate, Estimate >60 mL/min >60 Glucose 90 mg/dL 76-115 If >60 mL/min >60 92 Potassium 4.1 mEq/L 3.5-5.1 SGPT/Alt 41 U/L 30-65 Sgot/Ast 19 U/L 16-40 Sodium 140 mEq/L 136-145 Total Protein 8.2 g/dL High 6.3-8.0 LDL Cholesterol 05/15/2008 N2N/CCD Import Cholesterol 203 mg/dL High 120- 200 Profile HDL Cholesterol 52 mg/dL 32-96 LDL-Cholesterol 136 mg/dL 62-185 Triglycerides 77 mg/dL 0-210 Laboratory test finding 04/11/2008 N2N/CCD Import Cytology Pap ok 93, 94 Alb/Glob 1.1 Albumin 4.5 g/dL 3.5-5.0 Alkaline Phosphatase 85 U/L 50-136 Anion Gap 12 mEq/L 8-16 BUN 25 mg/dL High 5-23 BUN/Creat 22.7 Bilirubin,Total 0.5 mg/dL 0.2-1.2 Calcium 9.9 mg/dL 8.5-10.1 Carbon Dioxide 29 mEq/L 21-32 Chloride 108 mEq/L High 98-107 Creatinine 1.1 mg/dL 0.5-1.4 Globulin 4.2 gm/dL 1.9-4.3 Glom Filtration Rate, Estimate 55 mL/min >60 Glucose 90 mg/dL 76-115 If >60 mL/min >60 95 Potassium 4.4 mEq/L 3.5-5.1 SGPT/Alt 69 U/L High 30-65 Sgot/Ast 32 U/L 16-40 Sodium 145 mEq/L 136-145 Total Protein 8.7 g/dL High 6.3-8.0 96 LDL Cholesterol 04/11/2008 N2N/CCD Import Cholesterol 267 mg/dL High 120- 200 Profile HDL Cholesterol 65 mg/dL 32-96 LDL-Cholesterol 186 mg/dL High 62-185 Triglycerides 79 mg/dL 0-210 Laboratory test 07/15/2007 N2N/CCD Import Culture Throat Normal Throat FL 97 finding <See Note> Rapid Strep Test Negative Laboratory test finding 03/31/2007 N2N/CCD Import Stool Occult #1 Negative 98 Stool Occult #2 Negative Stool Occult #3 Negative LDL Cholesterol Profile 02/03/2007 N2N/CCD Import Cholesterol 198 mg/dL 120-200 99 HDL Cholesterol 52 mg/dL 32-96 LDL-Cholesterol 129 mg/dL 62-185 Triglycerides 86 mg/dL 0-210 Laboratory test finding 02/03/2007 N2N/CCD Import Anion Gap 7 mEq/L Low 8 -16 BUN 13 mg/dL 5-23 BUN/Creat 14.4 Calcium 8.6 mg/dL 8.5-10.1 Carbon Dioxide 31 mEq/L 21-32 Chloride 103 mEq/L 98-107 Creatinine 0.9 mg/dL 0.5-1.4 Glucose 84 mg/dL 76-115 Potassium 4.2 mEq/L 3.5-5.1 Sodium 137 mEq/L 136-145 Laboratory test finding 02/01/2007 N2N/CCD Import Cytology Pap See Note 100 Laboratory test finding 03/17/2006 N2N/CCD Import Stool Occult #1 Negative 101 Stool Occult #2 Negative Stool Occult #3 Negative Laboratory test 02/20/2006 N2N/CCD Import Surgical See Note 102, 103 finding Pathology Laboratory test 01/30/2006 N2N/CCD Import Cytology Pap neg 104 finding GC / Chlamydia negative 105 HPV neg 106 Dasha Species Negative For Can <See Note> 107 Gardnerella Vaginalis negaitve 108 Trichomonas Vaginalis Negative For Tri <See Note> 109 Alb/Glob 1.1 Albumin 4.2 g/dL 3.5-5.0 Alkaline Phosphatase 73 U/L 50-136 Anion Gap 10 mEq/L 8-16 BUN 24 mg/dL High 5-23 BUN/Creat 26.6 Bilirubin,Total 0.4 mg/dL 0.2-1.2 Calcium 9.7 mg/dL 8.5-10.1 Carbon Dioxide 32 mEq/L 21-32 Chloride 105 mEq/L 98-107 Creatinine 0.9 mg/dL 0.5-1.4 Free T4 0.81 ng/dL 0.71-1.85 Globulin 3.8 gm/dL 1.9-4.3 Glucose 99 mg/dL 76-115 Hematocrit 37.4 % 34.0-46.0 Hemoglobin 12.8 gm/dL 11.5-15.5 Mean Cell Volume 83.2 fL 80.0-96.0 Mean Corpuscular HGB 28.4 pg 27.0-33.0 Mean Corpuscular HGB Conc 34.2 g/dL 31.7-36.0 Mean Platelet Volume 8.1 fl 6.6-10.6 Platelet Count 400 K/uL 150-400 Potassium 4.6 mEq/L 3.5-5.1 Red Blood Count 4.49 M/uL 3.90-5.20 Red Cell Distri Width %CV 13.0 % 11.6-15.8 SGPT/Alt 53 U/L 30-65 Sgot/Ast 30 U/L 16-40 Sodium 142 mEq/L 136-145 Thyroid Stim Hormone 1.20 uIU/mL 0.49-4.67 Total Protein 8.0 g/dL 6.3-8.0 White Blood Count 5.3 K/uL 3.4-10.5 LDL Cholesterol 12/20/2005 N2N/CCD Import Cholesterol 208 mg/dL High 120- 200 Profile HDL Cholesterol 52 mg/dL 32-96 LDL-Cholesterol 145 mg/dL 62-185 Triglycerides 57 mg/dL 0-210 Laboratory test finding 12/20/2005 N2N/CCD Import Alb/Glob 0.9 Albumin 3.6 g/dL 3.5-5.0 Alkaline Phosphatase 67 U/L 50-136 Anion Gap 9 mEq/L 8-16 BUN 17 mg/dL 5-23 BUN/Creat 21.2 Bilirubin,Total 0.4 mg/dL 0.2-1.2 Calcium 8.7 mg/dL 8.5-10.1 Carbon Dioxide 29 mEq/L 21-32 Chloride 102 mEq/L 98-107 Creatinine 0.8 mg/dL 0.5-1.4 Globulin 4.0 gm/dL 1.9-4.3 Glucose 94 mg/dL 76-115 Hematocrit 37.4 % 34.0-46.0 Hemoglobin 12.7 gm/dL 11.5-15.5 Mean Cell Volume 83.7 fL 80.0-96.0 Mean Corpuscular HGB 28.4 pg 27.0-33.0 Mean Corpuscular HGB Conc 34.0 g/dL 31.7-36.0 Mean Platelet Volume 7.5 fl 6.6-10.6 Platelet Count 378 K/uL 150-400 Potassium 4.2 mEq/L 3.5-5.1 Red Blood Count 4.47 M/uL 3.90-5.20 Red Cell Distri Width %CV 12.8 % 11.6-15.8 SGPT/Alt 37 U/L 30-65 Sgot/Ast 21 U/L 16-40 Sodium 136 mEq/L 136-145 Thyroid Stim Hormone 1.19 uIU/mL 0.49-4.67 Total Protein 7.6 g/dL 6.3-8.0 White Blood Count 4.8 K/uL 3.4-10.5 [address] [place] [address] Surgical Pathology Report Specimen(s) Received A: Punch biopsy right sikhism Clinical Diagnosis and History ICD 10 D48.5 Biopsy right sikhism lesion. Lesion about 3 mm present for a few years and last few months now irritated and scabbing over, punch biopsy removal. Diagnosis SKIN, RIGHT JEWISH, PUNCH BIOPSY INFLAMED SEBORRHEIC KERATOSIS. Gross Description Specimen received in formalin labeled with the patient's name is a 0.6 x 0.4 x 0.2 cm rubbery nodular styles-guzman skin. The specimen is inked, bisected transversely and is entirely submitted for microscopic examination. (1 block) pedrito rff/sgb Technical component processed at [facility] Clinical Laboratories, Histopathology, [address] [place] [address], [facility]. Diagnosis and reporting performed at [facility], [address] [place] [address]. Reported: 03/23/2018 19:03 Electronically Signed Out By Lisa Lyon D.O. pedrito This report may include immunohistochemical or in-situ hybridization results. Testing was developed and the performance characteristics determined by Replaced by [facility] as required by CLIA '88. The FDA has determined that approval for specific use is not necessary for clinical use. The quality of all stains including positive and negative controls for all immunohistochemical and/or special stains were reviewed and considered appropriate ICD9 Codes L82.1 CPT4 codes A: 81796K Unless otherwise specified, testing performed by [facility] [address] [place] [id number] 2 Per NCEP ATP III Guidelines: Results lower than 40 mg/dL are suggestive of increased risk for coronary artery disease. Results > or=to 60 mg/dL are considered a negative risk factor. 3 Per NCEP ATP III Guidelines: Normal Population <130 Patients with medical conditions: CHD/DM Optimal: <100 Borderline high: 130-159 High: 160-189 Very high: >189 4 Updated reference range on new analyzer 5 Updated reference range on new analyzer 6 Concerning GFR Guidelines for Americans: Normal function or mild renal disease, if clinically at risk: >/=60 mL/min Moderately decreased: 30-59 Severely decreased: 15-29 Renal failure: <15 7 Concerning GFR Guidelines: Normal function or mild renal disease, if clinically at risk: >/=60 mL/min Moderately decreased: 30-59 Severely decreased: 15-29 Renal failure: <15 Glomerular Filtration Rate (GFR) is estimated based on the MDRD equation, which assumes a steady state for creatinine as recommended by the National Kidney Disease Education Program in conjunction with the National Institutes of Health and the National Kidney Foundation. Clinical conditions in which it may be necessary to measure GFR by using clearance methods include extremes of age and body size, severe malnutrition or obesity, diseases of skeletal muscle, paraplegia or quadriplegia, vegetarian diet, rapidly changing kidney function, and calculation of the dose of potentially toxic drugs that are excreted by the kidneys. 8 Updated Reference Range 9 Clinical Guidelines for recommended serum 25(OH)Vitamin D Deficient at less than 20 ng/mL Insufficient at 20 to <30 ng/mL Sufficient at 30-100 ng/mL Toxicity at greater than 100 ng/mL 10 before visit 07/2017 11 Per NCEP ATP III Guidelines: Results lower than 40 mg/dL are suggestive of increased risk for coronary artery disease. Results > or=to 60 mg/dL are considered a negative risk factor. 12 Per NCEP ATP III Guidelines: Normal Population <130 Patients with medical conditions: CHD/DM Optimal: <100 Borderline high: 130-159 High: 160-189 Very high: >189 13 Updated reference range on new analyzer 14 Updated reference range on new analyzer 15 Concerning GFR Guidelines for Americans: Normal function or mild renal disease, if clinically at risk: >/=60 mL/min Moderately decreased: 30-59 Severely decreased: 15-29 Renal failure: <15 16 Concerning GFR Guidelines: Normal function or mild renal disease, if clinically at risk: >/=60 mL/min Moderately decreased: 30-59 Severely decreased: 15-29 Renal failure: <15 Glomerular Filtration Rate (GFR) is estimated based on the MDRD equation, which assumes a steady state for creatinine as recommended by the National Kidney Disease Education Program in conjunction with the National Institutes of Health and the National Kidney Foundation. Clinical conditions in which it may be necessary to measure GFR by using clearance methods include extremes of age and body size, severe malnutrition or obesity, diseases of skeletal muscle, paraplegia or quadriplegia, vegetarian diet, rapidly changing kidney function, and calculation of the dose of potentially toxic drugs that are excreted by the kidneys. 17 Updated reference range on new analyzer 18 [employer] [facility] [place] [facility]. [address] [place] [address] CYTOLOGY REPORT Source of Specimen(s): Thin Prep Cervical / Endocervical Pap Smear - One Vial Date of Last Menstrual Period: 2008 Menstrual History: Post-menopausal Other Clinical Conditions: Last Pap Smear: 2015 ok HPV neg prior CINh HPV ASSAY REQUESTED Specimen Adequacy SATISFACTORY FOR EVALUATION PRESENCE OF ENDOCERVICAL/TRANSFORMATION ZONE COMPONENT General Categorization NEGATIVE FOR INTRAEPITHELIAL LESION OR MALIGNANCY Interpretation NEGATIVE FOR INTRAEPITHELIAL LESION OR MALIGNANCY Comment HPV testing will be performed and a separate report will be issued. Reported: 08/04/2016 09:41 Electronically Signed Out By Breana Wheeler, ,SCT(ASCP)([facility]) basil Zamorano CT(ASCP) JC ICD9 Code: R87.810 R87.61 QC Reviewed: Y Unless otherwise specified, testing performed by [facility] [address] [address] [address] [employer] [address] [address] Amplified Molecular High Risk HPV Test Patient Name:KIAT KNIGHT Patient :1955 Ordering Physician:ABIGAIL INIGUEZ MD Accession Number [id number] Specimen(s) Received A: High Risk HPV Thin Prep Cervical / Endocervical Pap Smear - One Vial Other Case Numbers: [id number] Diagnosis RISK GROUPS RESULTS High Risk NEGATIVE Tested for HPV Types (16, 18, 31, 33, 35, 39, 45, 51, 52, 56, 58, 59, 66, 68) Reported: 08/04/2016 10:26 Electronically Signed Out By Key Rogers MT [facility] Vandana Unz 20 b4 visit 07/2016 21 Per NCEP ATP III Guidelines: Results lower than 40 mg/dL are suggestive of increased risk for coronary artery disease. Results > or=to 60 mg/dL are considered a negative risk factor. 22 Per NCEP ATP III Guidelines: Normal Population <130 Patients with medical conditions: CHD/DM Optimal: <100 Borderline high: 130-159 High: 160-189 Very high: >189 23 Updated reference range on new analyzer 24 Updated reference range on new analyzer 25 Concerning GFR Guidelines for Americans: Normal function or mild renal disease, if clinically at risk: >/=60 mL/min Moderately decreased: 30-59 Severely decreased: 15-29 Renal failure: <15 26 Concerning GFR Guidelines: Normal function or mild renal disease, if clinically at risk: >/=60 mL/min Moderately decreased: 30-59 Severely decreased: 15-29 Renal failure: <15 Glomerular Filtration Rate (GFR) is estimated based on the MDRD equation, which assumes a steady state for creatinine as recommended by the National Kidney Disease Education Program in conjunction with the National Institutes of Health and the National Kidney Foundation. Clinical conditions in which it may be necessary to measure GFR by using clearance methods include extremes of age and body size, severe malnutrition or obesity, diseases of skeletal muscle, paraplegia or quadriplegia, vegetarian diet, rapidly changing kidney function, and calculation of the dose of potentially toxic drugs that are excreted by the kidneys. 27 Updated reference range on new analyzer 28 before visit 01/2016 29 Per NCEP ATP III Guidelines: Results lower than 40 mg/dL are suggestive of increased risk for coronary artery disease. Results > or=to 60 mg/dL are considered a negative risk factor. 30 Per NCEP ATP III Guidelines: Normal Population <130 Patients with medical conditions: CHD/DM Optimal: <100 Borderline high: 130-159 High: 160-189 Very high: >189 31 Concerning GFR Guidelines for Americans: Normal function or mild renal disease, if clinically at risk: >/=60 mL/min Moderately decreased: 30-59 Severely decreased: 15-29 Renal failure: <15 32 Concerning GFR Guidelines: Normal function or mild renal disease, if clinically at risk: >/=60 mL/min Moderately decreased: 30-59 Severely decreased: 15-29 Renal failure: <15 Glomerular Filtration Rate (GFR) is estimated based on the MDRD equation, which assumes a steady state for creatinine as recommended by the National Kidney Disease Education Program in conjunction with the National Institutes of Health and the National Kidney Foundation. Clinical conditions in which it may be necessary to measure GFR by using clearance methods include extremes of age and body size, severe malnutrition or obesity, diseases of skeletal muscle, paraplegia or quadriplegia, vegetarian diet, rapidly changing kidney function, and calculation of the dose of potentially toxic drugs that are excreted by the kidneys. [address] [place] [address] Surgical Pathology Report Specimen(s) Received A: Cervix Clinical Diagnosis and History Endocervical curettage as biopsy, no ectocervical biopsies. ASCUS Pap, HPV neg, but serial atypical Paps, see prior reports. Gross Description Specimen received in formalin labeled with the patient's name is a 0.3 x 0.3 x 0.1 cm aggregate of multiple irregular guzman-pink to guzman-red soft tissue fragments and guzman, blood-tinged mucus. The specimen is filtered through a biopsy bag and totally submitted in one cassette. paw eb/jbs Diagnosis DESIGNATED CERVIX: Endocervical tissue with squamous metaplasia. Negative for dysplasia on multiple levels examined. Comments [id number] and [id number] are reviewed. Technical component processed at [facility] Clinical Laboratories, Histopathology, [address] [place] [address], [address]. Diagnosis and reporting performed at [facility], [address] [place] [address]. Reported: 09/12/2015 10:49 Electronically Signed Out By Moe Navarro M.D. paw ICD9 Codes R87.610 Unless otherwise specified, testing performed by [facility] [facility] [address] [place] [id number] [address] [address] Amplified Molecular High Risk HPV Test Accession Number [id number] Specimen(s) Received A: High Risk HPV Thin Prep Cervical / Endocervical Pap Smear - One Vial Other Case Numbers: [id number] Diagnosis RISK GROUPS RESULTS High Risk NEGATIVE Tested for HPV Types (16, 18, 31, 33, 35, 39, 45, 51, 52, 56, 58, 59, 66, 68) Reported: 08/03/2015 17:23 Electronically Signed Out By Key Rogers [place] [facility] 35 [facility]. [address] [place] [address] GYNECOLOGIC CYTOLOGY REPORT Accession Number: [id number] Source of Specimen(s): A: Thin Prep Cervical / Endocervical Pap Smear - One Vial Clinical Diagnosis and History: Date of Last Menstrual Period: yrs ago Menstrual History: Post-menopausal Treatment History: Colposcopy Other Clinical Conditions: Last Pap Smear: 07/26 HPV Pos HPV ASSAY REQUESTED Specimen Adequacy Satisfactory for evaluation Presence of endocervical/transformation zone component General Categorization Epithelial cell abnormality Interpretation ATYPICAL SQUAMOUS CELLS OF UNDETERMINED SIGNIFICANCE (ASC-US) Recommendations HPV testing will be performed and a separate report will be issued. Reported: 08/02/2015 Electronically Signed Out By Wilfrid Rivero MD [place]: Clementine GUEVARA(ASCP) [facility] Unless otherwise specified, testing performed by [facility] [employer] [address] [place] [address] 36 b4 visit 07/2015 37 Per NCEP ATP III Guidelines: Results lower than 40 mg/dL are suggestive of increased risk for coronary artery disease. Results > or=to 60 mg/dL are considered a negative risk factor. 38 Per NCEP ATP III Guidelines: Normal Population <130 Patients with medical conditions: CHD/DM Optimal: <100 Borderline high: 130-159 High: 160-189 Very high: >189 39 Concerning GFR Guidelines for Americans: Normal function or mild renal disease, if clinically at risk: >/=60 mL/min Moderately decreased: 30-59 Severely decreased: 15-29 Renal failure: <15 40 Concerning GFR Guidelines: Normal function or mild renal disease, if clinically at risk: >/=60 mL/min Moderately decreased: 30-59 Severely decreased: 15-29 Renal failure: <15 Glomerular Filtration Rate (GFR) is estimated based on the MDRD equation, which assumes a steady state for creatinine as recommended by the National Kidney Disease Education Program in conjunction with the National Institutes of Health and the National Kidney Foundation. Clinical conditions in which it may be necessary to measure GFR by using clearance methods include extremes of age and body size, severe malnutrition or obesity, diseases of skeletal muscle, paraplegia or quadriplegia, vegetarian diet, rapidly changing kidney function, and calculation of the dose of potentially toxic drugs that are excreted by the kidneys. 41 on premarin cream , letter, today 42 ESTRADIOL REFERENCE RANGE: MENSTRUATING FEMALES FOLLICULAR PHASE 21-165 PG/ML MIDCYCLE 50-367 PG/ML LUTEAL PHASE 40-259 PG/ML POSTMENOPAUSAL <40 PG/ML NEW METHOD AND REFERENCE RANGE IN USE 04/19/13. RESULTS FROM THIS METHOD ARE SLIGHTLY LOWER THAN RESULTS FROM PREVIOUS METHOD. Unless otherwise specified, testing performed by [facility] [place] [address] 43 [facility] [place] [address] Surgical Pathology Report Specimen(s) Received A: Cervical biopsy at 12 B: Cervical biopsy at 6 C: Endocervical curettings Clinical Diagnosis and History Gross Description Specimen A received in formalin labeled "12 o'clock cervical biopsy" is a 1.1 x 0.4 x 0.1 cm aggregate of irregular guzman white soft tissue fragments. The specimen is filtered through a biopsy bag and totally submitted in one cassette. Specimen B received in formalin labeled "6 o'clock cervical biopsy" is a 1.0 x 0.6 x 0.1 cm aggregate of irregular guzman white soft tissue fragments. The specimen is filtered through a biopsy bag and totally submitted in one cassette. Specimen C received in formalin labeled "endocervical curettings" is a 1.5 x 1.3 x 0.2 cm aggregate of multiple, irregular, fragments of guzman red soft tissue and blood tinged mucus. Totally submitted in one cassette, filtered through a biopsy bag. paw eb/jrf Diagnosis A) CERVIX, BIOPSY AT 12 O'CLOCK: Fragmented T-zone mucosa showing focal mild squamous atypia, suggestive of HPV change/low grade FLORI. The presence of acute and chronic inflammation and reactive epithelial changes are also noted. Multiple levels examined. B) CERVIX, BIOPSY AT 6 O'CLOCK: T-zone tissue showing focal mild squamous atypia, suggestive of HPV change/low grade FLORI. The presence of acute and chronic inflammation and reactive epithelial changes are also noted. Multiple levels examined. C) ENDOCERVICAL CURETTINGS: Mucus, blood, and scanty fragments of T-zone mucosa (predominantly endocervical) showing reactive epithelial changes. Multiple levels examined. Comments A recent Pap test was negative for intraepithelial lesion ([id number]), but HPV testing was positive for high risk HPV types ([id number]). There is no evidence of high grade FLORI in any of the specimens. Recommend follow-up Pap and HPV cotesting in 12 months, or further follow-up as clinically indicated. Technical component processed at [facility] Clinical Laboratories, Histopathology, [address] [place] [address], [facility]. Diagnosis and reporting performed at [facility], [address] [place] [address]. Reported: 08/09/2014 16:06 Electronically Signed Out By Efe Nolen M.D. [facility] ICD9 Codes 079.4 Unless otherwise specified, testing performed by [facility] [address] [address] [address] [address] Amplified Molecular High Risk HPV Test Accession Number [id number] Specimen(s) Received A: High Risk HPV Thin Prep Cervical / Endocervical Pap Smear - One Vial Other Case Numbers: [id number] Diagnosis RISK GROUPS RESULTS High Risk POSITIVE Tested for HPV Types (16, 18, 31, 33, 35, 39, 45, 51, 52, 56, 58, 59, 66, 68) Comments The presence of High Risk HPV types is usually associated with a high/intermediate risk for development or progression to invasive cancer of the cervix. Reported: 07/24/2014 16:15 Electronically Signed Out By Anna Hui ckl [address] [facility]. [address] [place] [id number] GYNECOLOGIC CYTOLOGY REPORT Accession Number: [id number] Source of Specimen(s): A: Thin Prep Cervical / Endocervical Pap Smear - One Vial Clinical Diagnosis and History: Date of Last Menstrual Period: yrs ago Menstrual History: Post-menopausal Treatment History: Colposcopy Other Clinical Conditions: Last Pap Smear: 07/25 HPV Pos 16/18 neg HPV ASSAY REQUESTED Specimen Adequacy Satisfactory for evaluation Presence of endocervical/transformation zone component General Categorization Negative for intraepithelial lesion or malignancy Interpretation NEGATIVE FOR INTRAEPITHELIAL LESION OR MALIGNANCY Recommendations HPV testing will be performed and a separate report will be issued. Reported: 07/24/2014 Electronically Signed Out By Breana Wheeler SCT(ASCP)([facility]) [place]: Edith Zamorano CT(ASCP) [facility] QC Reviewed: Y Unless otherwise specified, testing performed by [facility] [address] [id number] HPV Genotypes 16 & 18/45 by [facility]MA Thin Prep SOURCE: Cervical/Endocervical 47 HPV Genotype 16 by [facility]MA Negative HPV Genotype 18/45 by [facility] Negative INTERPRETIVE INFORMATION: HPV Genotypes 16, 18/45 by [facility], ThinPrep This test detects E6/E7 viral messenger RNA of the high-risk HPV types 16, 18, and 45, only. It is intended for use in women 21 years and older with ASC-US cervical cytology results and in women 30 years and older with positive high-risk HPV results. Sensitivity may be affected by specimen collection methods, stage of infection, and the presence of interfering substances. Results should be interpreted in conjunction with other available laboratory and clinical data. This test is not intended for use as a stand-alone test. This test is intended for medical purposes only and is not valid for the evaluation of suspected sexual abuse or for other forensic purposes. HPV testing should not be used for screening or management of atypical squamous cells of undetermined significance (ASCUS) in women under age 21. [address] [id number] 49 Fastin hours 50 Per NCEP ATP III Guidelines: Results lower than 40 mg/dL are suggestive of increased risk for coronary artery disease. Results > or=to 60 mg/dL are considered a negative risk factor. 51 Per NCEP ATP III Guidelines: Normal Population <130 Patients with medical conditions: CHD/DM Optimal: <100 Borderline high: 130-159 High: 160-189 Very high: >189 52 Concerning GFR Guidelines for Americans: Normal function or mild renal disease, if clinically at risk: >/=60 mL/min Moderately decreased: 30-59 Severely decreased: 15-29 Renal failure: <15 53 Concerning GFR Guidelines: Normal function or mild renal disease, if clinically at risk: >/=60 mL/min Moderately decreased: 30-59 Severely decreased: 15-29 Renal failure: <15 Glomerular Filtration Rate (GFR) is estimated based on the MDRD equation, which assumes a steady state for creatinine as recommended by the National Kidney Disease Education Program in conjunction with the National Institutes of Health and the National Kidney Foundation. Clinical conditions in which it may be necessary to measure GFR by using clearance methods include extremes of age and body size, severe malnutrition or obesity, diseases of skeletal muscle, paraplegia or quadriplegia, vegetarian diet, rapidly changing kidney function, and calculation of the dose of potentially toxic drugs that are excreted by the kidneys. 54 [facility] [address] [place] [address] 305 [place] [address] SURGICAL PATHOLOGY REPORT Name: Kita Knight Pathology #: [id number] : 1955 (Age: 57) Sex: F Location: [facility] Med. Rec. # [id number] Date of Procedure: 08/18/2013 Billing #: [id number] Date Received: 08/18/2013 Alternate #: [id number] Requisition #: [id number] Physician(s): ABIGAIL INIGUEZ MD Specimen(s) Received: A: Cervical biopsy at 12:00 B: Cervical biopsy at 3:00 C: Cervical biopsy at 6:00 D: Endocervical curettage Clinical Information: Postmenopausal cervix with atrophy and thin mucosa, prominent vessels, possible dysplasia, HPV high risk positive in 2012 and 2013, 795.05 Gross Description: Specimen A received in formalin and labeled "12:00" is a 0.25 cc aggregate of mucinous material and possible soft tissue. Submitted in toto. (1 block) Specimen B received in formalin labeled "cervical biopsy at 3:00" is a 0.3 cm guzman-styles irregular fragment of tissue which is submitted in toto. (1 block ) Specimen C received in formalin labeled "cervical biopsy at 6:00" is a 0.3 cm guzman-styles irregular fragment of rubbery tissue which is submitted in toto. (1 block) Specimen D received in formalin labeled "endocervical curettings" is a 0.25 cc aggregate of mucus and clotted blood which is submitted in toto. (1 block) jib /MTM Diagnosis: A) CERVIX, 12:00, BIOPSY - MUCOUS ONLY. B) CERVIX, 3:00, BIOPSY - MUCUS ONLY. C) CERVIX, 6:00, BIOPSY - MUCUS ONLY. D) ENDOCERVIX, CURETTAGE - NO SIGNIFICANT PATHOLOGIC CHANGES. Comment: All cervical biopsies show only acellular mucus with no intact epithelium. Reported: 08/19/2013 Electronic Signature cf Wilfrid Downing MD [facility] Technical Laboratory [facility] ICD-9 Codes: 795.4 55 Cytology Laboratory [address] [place] [address], [address] [place] [address] CYTOLOGY REPORT Name: Kita Knight : 1955 (Age: 57) Sex: F Location: [facility] Med. Rec. # [id number] Date Collected: 07/19/2013 Billing #: [id number] Date Received: 07/19/2013 Alternate #: [id number] Requisition # [id number] Physician(s): ABIGAIL INIGUEZ MD Source of Specimen: ENDOCERVICAL/ECTOCERVICAL THIN PREP Clinical Information: Date of Last Menstrual Period: None Provided HPV/Infection History: High risk HPV positive: 04/25-negative 16/18 Other Clinical Conditions: Additional comment: 1/13-Pap ok Interpretation: NEGATIVE FOR INTRAEPITHELIAL LESION OR MALIGNANCY. Specimen Adequacy: SATISFACTORY FOR EVALUATION. Additional Findings: ENDOCERVICAL/TRANSFORMATION ZONE PRESENT. mas Electronic Signature Lala Barragan, CT (ASCP) Reported: 07/21/2013 [facility] [employer] [facility] HPV High Risk Date Ordered: 07/20/2013 Status: Signed Out Date Reported: 2013 High Risk POSITIVE (HPV types 16, 18, 31, 33, 35, 39, 45, 51, 52, 56, 58, 59 , 66, 68) Cervista HPV HR Electronic Signature Consuelo Hardy, CT (ASCP) [facility] [employer] [facility] ICD-9 Code(s) V72.31 HPV HR; 795.05 56 [facility] [address], [address] [place] [address] GC / CHLAMYDIA REPORT Name: Kita Knight : 1955 (Age: 57) Sex: F Location: [facility] Med. Rec. # [id number] Date Collected: 07/19/2013 Billing #: [id number] Date Received: 07/19/2013 Alternate #: [id number] Requisition # [id number] Physician(s): ABIGAIL INIGUEZ MD Source of Specimen: ThinPrep, APTIMA Results: Neisseria gonorrhoeae NEGATIVE Chlamydia trachomatis NEGATIVE Comment: This analysis was performed using second generation nucleic acid amplification testing (NAAT). Reported: 07/21/[address] Augusta Yael [facility] [employer] [facility] ICD-9 Codes: V72.31 57 [facility] [address], [address] [place] [address] HUMAN PAPILLOMAVIRUS TESTING Name: Kita Knight : 1955 (Age: 57) Sex: F Location: [facility] Med. Rec. # [id number] Date Collected: 07/19/2013 Billing #: [id number] Date Received: 07/19/2013 Alternate #: [id number] Requisition # [id number] Physician(s) : ABIGAIL INIGUEZ MD Source of Specimen: ThinPrep Pap Other Case Numbers: [id number] Results: HPV type 16 NEGATIVE Cervista HPV 16/18 HPV type 18 NEGATIVE Cervista HPV 16/18 Electronic Signature Enma Nava SAIGE [facility] Laboratory [facility] ICD-9 Codes: 795.05 Reported: 07/25/2013 mtg 58 NEGATIVE FOR DASHA SPECIES 59 NEGATIVE FOR GARDNERELLA VAGINALIS 60 Organism 1 ! BETA STREPTOCOCCUS GROUP B QUANTITY ! FEW RECOMMENDED THERAPY : ! PENICILLIN OR AMPICILLIN. 61 GRAM STAIN ! NO ORGANISMS SEEN ! GRAM STAIN INDETERMINANT FOR BACTERIAL VAGINOSIS 62 NEGATIVE FOR TRICHOMONAS VAGINALIS 63 No reportable results 64 Values >10 mIU/ML considered IMMUNE 65 HBsAg not detected; does not exclude the possibility of exposure to or early acute infections with HBV. 66 PENDING; TEST PERFORMED ON MONDAYS AND THURSDAYS 67 Antibodies to HCV not detected; does not exclude early acute HCV infection. 68 POSITIVE for Herpes simplex virus type-1. Typing was confirmed by monoclonal antibody microscopic immunofluorescence. Testing Performed By: [facility], 69 [facility], [place] [address] 69 No Trichomonas, yeast, or clue cells seen. This is a presumptive result. Specimens received more than 30 minutes after collection may yield false negative results. Identification of Trichomonas is made by the observation of motility , which becomes progressively diminished after 30 minutes. 70 NEGATIVE FOR CHLAMYDIA TRACHOMATIS BY DNA HYBRIDIZATION ASSAY. THIS TEST IS APPROVED FOR OCULAR AND UROGENITAL SITES ONLY. 71 NEGATIVE FOR NEISSERIA GONORRHOEAE BY DNA HYBRIDIZATION ASSAY. THIS METHOD IS APPROVED FOR UROGENITAL SITES ONLY. 72 FIRST MORNING SPECIMENS GENERALLY CONTAIN THE HIGHEST CONCENTRATION OF HCG AND ARE RECOMMENDED FOR EARLY DETECTION OF . 73 10/12/12 LAB.[email or web address] Deleted by Reflex Group [facility] 74 Note: Persistent reduction for 3 months or more in an eGFR <60 mL/min/1.73 m2 defines CKD. Patients with eGFR values >/=60 mL/min/1.73 m2 may also have CKD if evidence of persistent proteinuria is present. The original MDRD equation for estimated GFR is not valid for patients less than 18 years of age. Additional information may be found at www.kdoqi.org. 75 FASTING schedule fasting, leter, bp 76 Vitamin D deficiency has been defined by the [place] of Medicine and an Endocrine Society practice guideline as a level of serum 25-OH vitamin D less than 20 ng/mL (1,2). The Endocrine Society went on to further define vitamin D insufficiency as a level between 21 and 29 ng/mL (2). 1. IOM (Law[place] of Medicine). 2010. Dietary reference intakes for calcium and D. Al [place]: The National Academies Press. 2. Marilyn MF, Arely NC, Emory MOREIRA, et al. Evaluation, treatment, and prevention of vitamin D deficiency: an Endocrine Society clinical practice guideline. JCEM. 2010; 96(7):1911-30. Performed at: RN - [facility] [address] [id number] Organic Extractions Technician: Sofia Trammell MD, Phone: [phone] Cytology Laboratory [address] [place] [address], [address] [place] [address] CYTOLOGY REPORT Name: Kita Knight : 1955 (Age: 56) Sex: F Location: [facility] Med. Rec. # [id number] Date Collected: 05/03/2012 Billing #: [id number] Date Received: 05/04/2012 Alternate #: [id number] Requisition # [id number] Physician(s): ABIGAIL INIGUEZ MD Source of Specimen: ENDOCERVICAL/ECTOCERVICAL THIN PREP Clinical Information: Date of Last Menstrual Period: 2009 Hormonal History: Hormones: Natural progesterone Specimen Adequacy: SATISFACTORY FOR EVALUATION. ADEQUATE ENDOCERVICAL/TRANSFORMATION ZONE. General Categorization: NEGATIVE FOR INTRAEPITHELIAL LESION OR MALIGNANCY. mas Electronic Signature PAOLA Hernandez (ASCP) Reported: 05/06/2012 [facility] HPV High Risk Date Ordered: 05/05/2012 Status: Signed Out Date Reported: 05/06/2012 High Risk POSITIVE (HPV types 16, 18, 31, 33, 35, 39, 45, 51, 52, 56, 58, 59, 66, 68) Cervista HPV HR Electronic Signature Enma Nava MT [facility] Genotyping HPV Date Ordered: 05/20/2012 Status: Signed Out Date Reported: 05/20/2012 HPV type 16 NEGATIVE Cervista HPV 16/18 HPV type 18 NEGATIVE Cervista HPV 16/18 Electronic Signature PAOLA Martinez (ASCP) [facility] Technical Laboratory [facility] ICD- 9 Code(s) V72.31 HPV HR: 795.05 78 [facility] [address] [place] [address], [address] [place] [address] GC / CHLAMYDIA REPORT Name: Kita Knight : 1955 (Age: 56) Sex: F Location: [facility] Med. Rec. # [id number] Date Collected: 05/03/2012 Billing #: [id number] Date Received: 05/04/2012 Alternate #: [id number] Requisition # [id number] Physician(s): ABIGAIL INIGUEZ MD Source of Specimen: ThinPrep, APTIMA Results: Neisseria gonorrhoeae NEGATIVE Chlamydia trachomatis NEGATIVE Comment: This analysis was performed using second generation nucleic acid amplification testing (NAAT). Reported: 05/05/2012 Electronic Signature [facility] Enma Nava [facility] ICD-9 Codes: A: V72.31 79 Vitamin D deficiency has been defined by the [place] of Medicine and an Endocrine Society practice guideline as a level of serum 25-OH vitamin D less than 20 ng/mL (1,2). The Endocrine Society went on to further define vitamin D insufficiency as a level between 21 and 29 ng/mL (2). 1. IOM ([place] of Medicine). 2011. Dietary reference intakes for calcium and D. [place]: The National Academies Press. 2. Marilyn MF, Arely NC, Emory MOREIRA, et al. Evaluation, treatment, and prevention of vitamin D deficiency: an Endocrine Society clinical practice guideline. JCEM. 2010; 96(7):1911-30. Performed at: [facility] [address] [id number] Organic Extractions Technician: Wilfrid Hernandez MD, Phone: [phone] 80 NORMAL THROAT HINA 81 Recent studies consider the lower limit of 32.0 ng/mL to be a threshold for optimal health. Michael AUSTIN. J Nutr. 2005 May;135(2):317-22. Performed at: - [facility] [address] [id number] Organic Extractions Technician: Wilfrid Hernandez MD, Phone: [phone] 82 Cytology Laboratory [address], [address] [place] [address] CYTOLOGY REPORT Name: Kita Knight : 1955 (Age: 54) Sex: F Location: [facility] Soc. Sec. #: [id number] Date Collected: 04/30/2010 Billing #: [id number] Date Received: 04/30/2010 Med. Rec. #: [id number] Requisition # [id number] Alternate # : [id number] Physician(s): ABIGAIL INIGUEZ MD Source of Specimen: ENDOCERVICAL/ECTOCERVICAL THIN PREP Clinical Information: Date of Last Menstrual Period: 07/20 Menstrual History: Post menopausal: 07/20 Dysplasia/Cancer History: AGC Specimen Adequacy: SATISFACTORY FOR EVALUATION. ADEQUATE ENDOCERVICAL/TRANSFORMATION ZONE. General Categorization: NEGATIVE FOR INTRAEPITHELIAL LESION OR MALIGNANCY. hazel Electronic Signature PAOLA Jason (ASCP) Reported: 05/02/2010 Also seen by:PAOLA Jason (ASCP) [facility] ICD-9 Code(s) V72.31 83 Note: Persistent reduction for 3 months or more in an eGFR <60 mL/min/1.73 m2 defines CKD. Patients with eGFR values >/=60 mL/min/1.73 m2 may also have CKD if evidence of persistent proteinuria is present. The original MDRD equation for estimated GFR is not valid for patients less than 18 years of age. Additional information may be found at www.kdoqi.org. 84 anytime, fu one month QUERY: @EMR Pat ID: QUERY: @EMR Req #: 85 Recent studies consider the lower limit of 32.0 ng/mL to be a threshold for optimal health. Michael AUSTIN. J Nutr. 2005 May;135(2):317-22. Performed at: RN - [facility] [address] [place], [place] [id number] Organic Extractions Technician: Wilfrid Hernandez MD, Phone: [phone] 86 NORMAL THROAT HINA 87 [facility] [address], [address] [place] [address] SURGICAL PATHOLOGY REPORT Name: Kita Knight Pathology #: [id number] : 1955 (Age: 53) Sex: F Location: [facility] Soc. Sec. #: [id number] Date of Procedure: 04/19/2009 Billing #: [id number] Date Received: 04/19/2009 Requisition #: [id number] Alternate #: [id number] Physician(s ): ABIGAIL INIGUEZ MD Specimen(s) Received: Left upper quadrant abdomen Clinical Information: Shave biopsy left upper quadrant abdominal, 8 x 5 mm raised brown mostly ovoid but medial aspect was pointed and light colored, in 2 pieces. Neoplasm uncertain skin, suspect seborrheic keratosis. 238.2 Gross Description: Specimen received in formalin and labeled "left upper abdominal shave biopsy " are two guzman rubbery shave biopsies of skin measuring 0.6 to 0.7 cm in length and 0.4 cm in width. The specimen surface is slightly granular. Both specimens are bisected and entirely submitted. (1 block) jib WXS/MTM Diagnosis: SKIN, LEFT UPPER QUADRANT OF ABDOMEN SEBORRHEIC KERATOSIS. Significant tissue shrinkage and contraction occurs following excision, and clinical size of excised tissue may be larger than the measurements in this report. Reported: 04/20/2009 Electronic Signature cf Wilfrid Downing MD [facility] Laboratory [facility] ICD -9 Codes: 702.19 88 Cytology Laboratory [address], [address] [place] [address] CYTOLOGY REPORT Name: Kita Knight : 1955 (Age: 53) Sex: F Location: [facility] Soc. Sec. #: [id number] Date Collected: 03/28/2009 Billing #: [id number] Date Received: 03/28/2009 Requisition # [id number] Alternate #: [id number] Physician(s): ABIGAIL INIGUEZ MD Source of Specimen: ENDOCERVICAL/ECTOCERVICAL THIN PREP Clinical Information: Date of Last Menstrual Period: 07/20 and 02/18 Menstrual History : Irregular Dysplasia/Cancer History: Abnormal Pap smear(s) Specimen Adequacy: SATISFACTORY FOR EVALUATION. ADEQUATE ENDOCERVICAL/TRANSFORMATION ZONE. General Categorization: NEGATIVE FOR INTRAEPITHELIAL LESION OR MALIGNANCY. tfn Electronic Signature PAOLA Lancaster (ASCP) Reported: 04/03/2009 Also seen by :PAOLA Thomas (ASCP) [facility] ICD-9 Code(s) V72.31 89 Specimen: [id number] - TEST: PES elevated albumen TEST: PES Specimen: [id number] - TEST: CBCDIFF elevated albumen TEST: CBCDIFF Specimen: [id number] - TEST: CBCDIFF elevated albumen TEST: CBCDIFF Specimen: [id number] - TEST: PES elevated albumen TEST: PES 90 Protein electrophoresis scan will follow via mail or perioperative tech. 91 Specimen: [id number] - TESTS: CMP, LDLP FASTING obtrain fasting in 4 weeks to fu high chol, abnormal protein, abnormal liver, letter TEST: CMP QUERY: IS THE PATIENT FASTING? Y TEST: LDLP QUERY: IS THE PATIENT FASTING? Y QUERY: FASTING PROFILE INCLUDES CHOL, TRIG, HDL, + LDL 92 Note: Persistent reduction for 3 months or more in an eGFR <60 mL/min/1.73 m2 defines CKD. Patients with eGFR values >/=60 mL/min/1.73 m2 may also have CKD if evidence of persistent proteinuria is present. The original MDRD equation for estimated GFR is not valid for patients less than 18 years of age. Additional information may be found at www.kdoqi.org. 93 Specimen: [id number] - TESTS: CMP, LDLP FASTING labs today, fasting,ldl goal < 160, letter, pap TEST: CMP QUERY: IS THE PATIENT FASTING? Y TEST: LDLP QUERY : IS THE PATIENT FASTING? Y QUERY: FASTING PROFILE INCLUDES CHOL, TRIG, HDL, + LDL 94 [facility]ology [id number], [address] [place] [address] CYTOLOGY REPORT Name: Kita Knight : 1955 (Age: 52) Sex: F Location: [facility] Soc. Sec. #: [id number] Date Collected: 04/11/2008 Billing #: [id number] Date Received: 04/12/2008 Requisition # [id number] Alternate #: [id number] Physician(s): ABIGAIL INIGUEZ MD Source of Specimen: ENDOCERVICAL/ECTOCERVICAL THIN PREP Clinical Information: Date of Last Menstrual Period: 03/20/08 Menstrual History: Regular Specimen Adequacy: SATISFACTORY FOR EVALUATION. ADEQUATE ENDOCERVICAL/TRANSFORMATION ZONE. General Categorization: NEGATIVE FOR INTRAEPITHELIAL LESION OR MALIGNANCY. lar Electronic Signature PAOLA Martinez (ASCP) Reported: 04/18/2008 [facility] ICD-9 Code(s) V72.31 795.01 95 Note: Persistent reduction for 3 months or more in an eGFR <60 mL/min/1.73 m2 defines CKD. Patients with eGFR values >/=60 mL/min/1.73 m2 may also have CKD if evidence of persistent proteinuria is present. The original MDRD equation for estimated GFR is not valid for patients less than 18 years of age. Additional information may be found at www.kdoqi.org. 96 Result confirmed by repeat analysis. 97 NORMAL THROAT HINA 98 given 99 Specimen: [id number] - TESTS: C7, LDLP FASTING schedule fasting TEST: C7 QUERY: IS THE PATIENT FASTING? Y QUERY: CARD 1=GLU, BUN, CRE, NA, K, CL, CO2, CALCIUM + GAP TEST: LDLP QUERY: IS THE PATIENT FASTING? Y QUERY: FASTING PROFILE INCLUDES CHOL, TRIG, HDL, + LDL 100 Cytology [id number], [address] [place] [address] CYTOLOGY REPORT Name: Kita Knight : 1955 (Age: 51) Sex: F Location: [facility] Soc. Sec. #: [id number] Date Collected: 02/01/2007 Billing #: [id number] Date Received: 02/01/2007 Alternate #: [id number] Physician(s): ABIGAIL INIGUEZ MD Source of Specimen: ENDOCERVICAL/ECTOCERVICAL THIN PREP Clinical Information: Date of Last Menstrual Period: 11/29 Menstrual History:Irregular Dysplasia/Cancer History:AGC Other Clinical Conditions:Additional comment: Uterine fibroids Polyp(s) Specimen Adequacy: SATISFACTORY FOR EVALUATION. ADEQUATE ENDOCERVICAL/TRANSFORMATION ZONE. General Categorization: NEGATIVE FOR INTRAEPITHELIAL LESION OR MALIGNANCY. Descriptive Evaluation: REACTIVE CELLULAR CHANGES ASSOCIATED WITH INFLAMMATION. saf Electronic Signature Panchito Santillan MD Reported: 02/04/2007 Also seen by: PAOLA Martinez (ASCP) [facility] ICD-9 Code(s) V72.31 626.2 A: 616.9 101 stool cards given 102 f/u results by letter per pt 103 [facility] [address] [place] [address] SURGICAL PATHOLOGY REPORT Name: Kita Knight Pathology #: [id number] : 1955 (Age: 50) Sex: F Location: [facility] Soc. Sec. #: [id number] Date of Procedure: 02/20/2006 Billing #: [id number] Date Received: 02/23/2006 Requisition #: [id number] Alternate #: [id number] Physician(s): ABIGAIL INIGUEZ MD Specimen(s) Received: A: Endometrial biopsy B: Endocervical polyp Clinical Information: Menorrhagia, 626.2. Gross Description: Specimen A received in formalin labeled "endometrial biopsy with endocervical curettings" is 0.5 cc of irregular guzman-brown fragments of soft tissue, clotted blood, and mucus which is submitted in toto. (1 block) Specimen B received in formalin and labeled "endocervical polyp" is a brown, polypoid fragment of mucosa measuring 1.0 x 0.3 x 0.3 cm. Submitted in toto. (1 block) ranjeet GUAMAN/JACKIE Diagnosis: A) ENDOMETRIAL BIOPSY FRAGMENTS OF ENDOMETRIAL POLYP AND BENIGN INACTIVE ENDOMETRIAL TISSUE. B) ENDOCERVICAL POLYP. Reported: 02/24/2006 Electronic Signature ranjeet Santillan MD ICD-9 Codes: 621.0 104 Cytology Laboratory [address] [place] [address] CYTOLOGY REPORT Name: Kita Knight : 1955 (Age: 50) Sex: F Location: [facility] Soc. Sec. #: [id number] Date Collected: 01/30/2006 Billing #: [id number] Date Received: 02/02/2006 Alternate #: [id number] Physician(s): ABIGAIL INIGUEZ MD Source of Specimen: ENDOCERVICAL/ECTOCERVICAL THIN PREP Clinical Information: Date of Last Menstrual Period: 01/16 Menstrual History: Menorrhagia Dysplasia/Cancer History: Abnormal Pap smear(s) Other Clinical Conditions: Fibroids Specimen Adequacy: SATISFACTORY FOR EVALUATION. ADEQUATE ENDOCERVICAL/TRANSFORMATION ZONE. General Categorization: NEGATIVE FOR INTRAEPITHELIAL LESION OR MALIGNANCY. cf Electronic Signature Panchito Santillan MD Reported: 02/05/2006 Also seen by: PAOLA Thomas (ASCP) ICD-9 Code(s) V72.31 795.01 105 Special [facility] [address] [place] [address] GC / CHLAMYDIA REPORT Name: Kita Knight : 1955 (Age: 50) Sex: F Location: [facility] Soc. Sec. #: [id number] Date Collected: 01/30/2006 Billing #: [id number] Date Received: 02/02/2006 Requisition # [id number] Alternate #: [id number] Physician(s ): ABIGAIL INIGUEZ MD Source of Specimen: ThinPrep Results: Neisseria gonorrhoeae NEGATIVE Chlamydia trachomatis NEGATIVE Comment: This analysis was performed using second generation nucleic acid amplification testing (NAAT). Reported: 02/03/2006 Electronic Signature [place] ICD-9 Codes: V72.31 626.2 106 [facility] [address], [address] [place] [address] DIGENE HYBRID CAPTURE II HPV TEST Name: Kita Knight : 1955 (Age: 50) Sex: F Location: [facility] Soc. Sec. #: [id number] Date Collected: 01/30/2006 Billing #: [id number] Date Received: 02/02/2006 Alternate #: [id number] Physician(s): ABIGAIL INIGUEZ MD Source of Specimen: THIN PREP PAP Other Case Numbers: [id number] Results: Low Risk TEST NOT REQUESTED ON THIS SPECIMEN (HPV types 6, 11, 42, 43, 44) High Risk NEGATIVE (HPV types 16, 18, 31, 33, 35, 39 , 45, 51, 52, 56, 58, 59, 68) Reported: 02/09/2006 Electronic Signature [place] ICD-9 Codes: A: V72.31 626.2 795.01 107 NEGATIVE FOR DASHA SPECIES 108 NEGATIVE FOR GARDNERELLA VAGINALIS Testing Performed by: [place] [address] 109 NEGATIVE FOR TRICHOMONAS VAGINALIS Procedures Date Code Description Status 07/31/2017 18423 Brief Emotional/Behav Assessment W/ Scoring Doc Per Completed Standard Inst 07/29/2017 63622055 Mammogram Completed 04/16/2017 08131607 Colonoscopy Completed 09/03/2016 44334 Bone Density Study (Dexa) Axial Skeleton Completed (Hips,Pelvis,Spine) 09/03/2016 255063919 Bone Mineral Density Test Completed 09/06/2015 04840 Colposcopy Of Cervix Incl/Vagina With Endocervical Completed Curettage 08/07/2014 43090 Colposcopy W/Biopsy Cervix/Endocervical Curettage Completed 07/27/2014 96831 Ultrasound Breast Limited Completed 07/27/2014 29527 Ultrasound Breast Unilateral Real Time W/ Image Doc Completed Inc Axilla 07/27/2014 70916 Ultrasound Breast Unilateral Real Time W/ Image Doc Completed Inc Axilla 07/14/2014 42386 Bone Density Study (Dexa) Axial Skeleton Completed (Hips,Pelvis,Spine) 07/14/2014 [id number] Mammogram Completed 07/14/2014 06607 Old Bone Density Study (Dexa) Completed 07/14/2014 636931968 Bone Mineral Density Test Completed 08/23/2013 19107 Measure Blood Oxygen Level Single Determination Completed 08/23/2013 71790 Init Demo Of Nebulizer/Inhaler Or Ippb &/Or Patients Completed Utilization 08/18/2013 05819 Colposcopy W/Biopsy Cervix/Endocervical Curettage Completed 06/02/2013 58340 Mammography Unilateral Completed 02/22/2013 31527 Measure Blood Oxygen Level Single Determination Completed 05/19/2012 09834 Mammography Unilateral Completed 12/29/2011 54471 Measure Blood Oxygen Level Single Determination Completed 05/22/2011 77315 Mammography Unilateral Completed 05/08/2010 13348 Bone Density Study, Single Photon Absorptiometry Completed 05/08/2010 43694 Mammography Unilateral Completed 05/29/2009 43710 Measure Blood Oxygen Level Single Determination Completed 05/29/2009 13322 Init Demo Of Nebulizer/Inhaler Or Ippb &/Or Patients Completed Utilization 04/26/2009 95344 Mammography Unilateral Completed 04/19/2009 57554 Shave Skin Lesion .6-1CM Trunk/Arm/Leg Completed 04/19/2009 33936 Remove Skin Tags Each Addtl 10 Completed 04/19/2009 80594 Remove Skin Tags Up To 15 Completed 02/14/2009 69853 Measure Blood Oxygen Level Single Determination Completed 04/24/2008 20051 Mammography Unilateral Completed 04/21/2008 56651 Mammography Unilateral Completed 04/16/2007 92685 Colonoscopy Flexible Diagnostic Completed 02/19/2007 99182 Mammography Unilateral Completed 02/20/2006 71329 Biopsy Endometrial/Endocervical Completed 02/20/2006 46240 Curettage Endocervical Completed 02/20/2006 94561 Biopsy Cervix Completed 01/23/2006 61093 Mammography Unilateral Completed 12/31/2005 18242 Duplex Scan Extracranial Arteries, Complete Bilateral Completed Study 12/19/2005 54631 Electrocardiogram Complete Completed Encounters Type Date Location Provider Dx Diagnosis Office Visit 07/31/2017 [facility] Abigail Iniguez, Z01.411 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) w abnormal findings R87.810 Cervical high risk HPV Dna test positive M25.551 Pain in RIGHT hip E78.2 Mixed hyperlipidemia G43.809 Other migraine, not intractable, without status migrainosus J30.1 Allergic rhinitis due to pollen N95.2 Postmenopausal atrophic vaginitis Z23 Encounter for immunization E55.9 Vitamin D deficiency, unspecified Z12.31 Encntr screen mammogram for malignant neoplasm of breast Z12.11 Encounter for screening for malignant neoplasm of colon Z68.30 Body mass index (BMI) 30.0-30.9, adult Office Visit 01/30/2017 8:30a [facility] Abigail Iniguez MD N95.2 Postmenopausal atrophic vaginitis G43.809 Other migraine, not intractable, without status migrainosus E78.2 Mixed hyperlipidemia J30.1 Allergic rhinitis due to pollen D48.62 Neoplasm of uncertain behavior of LEFT breast Z68.30 Body mass index (BMI) 30.0-30.9, adult Office Visit 07/30/2016 11:00a [facility] Abigail Iniguez MD Z01.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) w abnormal findings R87.810 Cervical high risk HPV Dna test positive R87.610 Atyp squam cell of undet signfc cyto smr crvx (Asc-US) G43.809 Other migraine, not intractable, without status migrainosus J30.1 Allergic rhinitis due to pollen E78.2 Mixed hyperlipidemia E55.9 Vitamin D deficiency, unspecified N95.2 Postmenopausal atrophic vaginitis D48.62 Neoplasm of uncertain behavior of LEFT breast Z12.31 Encntr screen mammogram for malignant neoplasm of breast Z12.11 Encounter for screening for malignant neoplasm of colon Z68.29 Body mass index (BMI) 29.0-29.9, adult Office Visit 01/30/2016 9:15a [facility] Abigail Iniguez MD E78.2 Mixed hyperlipidemia N95.2 Postmenopausal atrophic vaginitis D48.62 Neoplasm of uncertain behavior of LEFT breast J30.1 Allergic rhinitis due to pollen Office Visit 07/31/2015 9:30a [facility] Abigail Iniguez MD N95.2 Postmenopausal atrophic vaginitis E78.2 Mixed hyperlipidemia E55.9 Vitamin D deficiency, unspecified D48.62 Neoplasm of uncertain behavior of LEFT breast R87.810 Cervical high risk HPV Dna test positive G43.809 Other migraine, not intractable, without status migrainosus J30.1 Allergic rhinitis due to pollen Z01.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) w abnormal findings Z12.11 Encounter for screening for malignant neoplasm of colon Z12.31 Encntr screen mammogram for malignant neoplasm of breast Z68.28 Body mass index (BMI) 28.0-28.9, adult Office Visit 04/02/2015 2:45p [facility] Abigail Iniguez MD N95.2 Postmenopausal atrophic vaginitis D48.62 Neoplasm of uncertain behavior of LEFT breast Office Visit 12/29/2014 1:30p [facility] Abigail Iniguez MD 627.3 Atrophic Vaginitis Postmenopausal 238.3 Neoplasm Uncertain Breast Office Visit 10/03/2014 9:00a [facility] Abigail Iniguez MD 627.3 Atrophic Vaginitis Postmenopausal 238.3 Neoplasm Uncertain Breast V85.23 BMI Body Mass Index 27.0-27.9 Adult Office Visit 08/07/2014 11:00a [facility] Abigail Iniguez MD 795.03 Pap Smear Cervix W/LGSIL 795.05 Cervical (HPV) Dna Positive 238.3 Neoplasm Uncertain Breast 079.4 Human Papilloma Virus Office Visit 07/20/2014 8:30a [facility] Abigail Iniguez MD 795.05 Cervical ( HPV) Dna Positive 627.3 Atrophic Vaginitis Postmenopausal 272.2 Hyperlipidemia Mixed 268.9 Vitamin D Deficiency Unspec 346.20 Migraine Variants W/O Intractable 477.0 Rhinitis Allergic Due To Pollen V82.81 Screening For Osteoporosis V72.31 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 Examination V76.12 Screening Mammogram Malig Azam Other V76.51 Special Screening For Malignant Neoplasms Colon 793.82 Inconclusive Mammogram 706.2 Sebaceous Cyst 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, Disease Of Capillaries Office Visit 07/03/2014 10:15a [facility] Abigail Iniguez MD 625.0 Dyspareunia V07.4 HRT Hormone Replacement Therapy Postmenopausal 627.3 Atrophic Vaginitis Postmenopausal Plan of Treatment Future Appointment(s):07/28/2018 7:30 am - Schedule, Laboratory at [facility]2018 9:30 am - Abigail Iniguez MD at [facility]03/25/2018 - Abigail Iniguez MDD48.5 Neoplasm of uncertain behavior of skinComments:punch biopsy removal, shows inflamed seborrheac keratosissutures removed site healingwell avoid sun exposurecall if opens or spreading redness occursFollow up:followup as [id number] Inflamed seborrheic keratosisComments:Explained likely inherited type skin lesion, benign, grows slowly over time and likely to develop more. If grows rapidly or significant pigment change, could be something else and should let me know.Pt should continue self monitoring of skin lesions and advise me of any changing lesions of concern.Follow up:Followup:. (Follow up) Z68.27 Body mass index (BMI) 27.0-27.9, adultComments:recommend reduced calorie diet and healthy diet and regular exercise to help with weight loss
[2018-04-22 16:53] VITALS: BP 115/57
--- NOTE | 2018-04-22 17:13 | ED ---
Throat Pain/Nasal Congestion - HPI Summary HPI Summary: 62 yr old female with the complaint of sore throat, ear pressure, some sinus congestion and post nasal drip. She has been getting intermittent sore throat the past couple of weeks. She felt like she had some chills. She denies drooling. She denies stridor. - History of Current Complaint Chief Complaint: UCGeneralIllness Time Seen by Provider: 04/22/18 16:55 - Allergies/Home Medications Allergies/Adverse Reactions: Allergies Allergy/AdvReac Type Severity Reaction Status Date / Time No Known Allergies Allergy Verified 04/22/18 16:38 Home Medications: Home Medications Acetaminophen/Diphenhydramine [Tylenol Pm Ex-Strength Caplet] 2 each PO BEDTIME PRN 04/22/18 [History Confirmed 04/22/18] Ascorbic Acid TAB* [Vitamin C TAB*] 1,000 mg PO DAILY 04/22/18 [History Confirmed 04/22/18] Ascorbic Acid [Vitamin C] 250 mg PO DAILY PRN 04/22/18 [History Confirmed ] Aspirin TAB* [Aspirin 325 MG TAB*] 3 tab PO Q6H PRN 04/22/18 [History Confirmed 04/22/18] Conjugated Estrogens VAG CM* [Premarin VAG CREAM*] 1 applic VAGINAL DAILY [History Confirmed 04/22/18] Fluticasone NASAL SPRAY 50MCG* [Flonase NASAL SPRAY 50MCG*] 2 spray BOTH NARES DAILY 04/22/18 [History Confirmed 04/22/18] Loratadine 10 mg PO DAILY 04/22/18 [History Confirmed 04/22/18] Mv-Min/Vit C/Glut/Lysine/Hb124 [Airborne] 1 tab PO DAILY PRN 04/22/18 [History Confirmed 04/22/18] Phentermine HCl 37.5 mg PO DAILY 04/22/18 [History Confirmed 04/22/18] Progesterone, Micronized [Progesterone] 200 mg PO DAILY 04/22/18 [History Confirmed 04/22/18] SUMAtriptan TAB* [Imitrex TAB*] 25 mg PO SEE INSTRUCTIONS 04/22/18 [History Confirmed 04/22/18] Zinc 50 mg PO DAILY PRN 04/22/18 [History Confirmed 04/22/18] PMH/Surg Hx/FS Hx/Imm Hx Cardiovascular History: Denies: Hx Pacemaker/ICD Sensory History: Denies: Hx Hearing Aid Psychiatric History: Denies: Hx Panic Disorder - Surgical History Surgery Procedure, Year, and Place: OOPHORECTOMY AND SALPINGECTOMY, PARTIAL MASTECTOMY, Infectious Disease History: No Infectious Disease History: Denies: Traveled Outside the [place] in Last 30 Days - Family History Known Family History: Positive: None - Social History 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 Alcohol Use: None Substance Use Type: Reports: None Smoking Status (MU): Never Smoked Tobacco Review of Systems Constitutional: Negative Positive: Sore Throat, Ear Ache, Nasal Discharge All Other Systems Reviewed And Are Negative: Yes Physical Exam Triage Information Reviewed: Yes Vital Signs On Initial Exam: Initial Vitals Temp Pulse Resp BP Pulse Ox 97.7 F 74 15 115/57 100 04/22/18 16:47 04/22/18 16:47 04/22/18 16:47 04/22/18 16:47 04/22/18 16:47 Vital Signs Reviewed: Yes Appearance: Positive: Well-Appearing, No Pain Distress Skin: Positive: Warm, Skin Color Reflects Adequate Perfusion Head/Face: Positive: Normal Head/Face Inspection Eyes: Positive: EOMI ENT: Positive: Pharyngeal erythema, Nasal congestion, TM red - left with effusion, Uvula midline. Negative: Tonsillar swelling, Tonsillar exudate, Muffled voice, Hoarse voice Respiratory/Lung Sounds: Positive: Clear to Auscultation, Breath Sounds Present Cardiovascular: Positive: RRR. Negative: Murmur Abdomen Description: Positive: Nontender Musculoskeletal: Positive: Strength/ROM Intact Neurological: Positive: Sensory/Motor Intact, Alert, Oriented to Person Place, Time, CN Intact II-III Psychiatric: Positive: Normal Diagnostics - Vital Signs Vital Signs Temp Pulse Resp BP Pulse Ox 04/22/18 16:47 97.7 F 74 15 115/57 100 - Laboratory Lab Statement: Any lab studies that have been ordered have been reviewed, and results considered in the medical decision making process. EENT Course/Dx - Course Course Of Treatment: 62 yr old with pharyngitis, sinusitis, and otitis media. Will Rx with Augmentin. The patient states she has taken augmentin before without any issues. - Diagnoses Provider Diagnoses: Otitis media, Sinusitis, Pharyngitis Discharge - Sign-Out/Discharge Documenting (check all that apply): Patient Departure All imaging exams completed and their final reports reviewed: No Studies - Discharge Plan Condition: Good Disposition: HOME Prescriptions: Amoxicillin/Clavulanate TAB* [Augmentin TAB 875*] 875 mg PO BID #20 tab Patient Education Materials: Ear Infection (ED), Sinusitis (ED), Pharyngitis ( ED) Referrals: Abigail Parekh MD [Primary Care Provider] - - Billing Disposition and Condition Condition: GOOD Disposition: Home
== END 2018-04-22 17:22 | disposition home or self-care (01) ==
LOC: UCCORT 16:23
DX: H66.90 Otitis media, unspecified, unspecified ear (principal); J32.9 Chronic sinusitis, unspecified; J02.9 Acute pharyngitis, unspecified
CPT/HCPCS: 99202; G0463